=== PATIENT | male | born 1970 | race Caucasian/White ===

== ENCOUNTER 2021-11-23 10:48 | Outpatient (RCR) | payer BC, SELFPAY ==
[2021-12-09 15:24] LABS: Cancer Antigen-GI (CA 19-9) 22 U/mL (<=35)
--- NOTE | 2022-01-25 15:10 | ONC.NURNOTE ---
Narendra phoned today in follow up [facility] Sur[facility] recommended he contact oncology to start creon results pulled from [facility] to follow up with Dr Ana Rosa Mackey has an appt next month with Dr Oseguera
--- NOTE | 2022-01-27 10:50 | ONC.NURNOTE ---
Dr. Oseguera reviewed pt's Elastase Fecal value of 68.0. Script for Creon sent to pt's pharmacy. Systems Checkout Mechanic called pt with Dr. Oseguera's recommendation, pt verbalized understanding of directions for taking Creon and reason for taking. Pt has CT and follow up scheduled next month.
--- NOTE | 2022-02-18 10:55 | ONC.NURNOTE ---
Peer to peer review for abd scan completed by Olga Hubbard for CT CAP scan planned for 02/28/22 Abdominal scan approved Auth # [id number] 02/17/22-04/17/22 [facility] # [id number] Case # [id number] CT Chest and Pelvis has already been approved Abd was initially denied by [facility]
== END 2021-12-19 23:59 | disposition home or self-care (01) ==
LOC: CCIC 10:48
PROVIDERS: PCP Family Medicine; Visit Provider Internal Medicine Hematology & Oncology
DX: C25.9 Malignant neoplasm of pancreas, unspecified (principal); Z85.47 Personal history of malignant neoplasm of testis; R19.7 Diarrhea, unspecified
CPT/HCPCS: 36415; 86301; 99212; 99213; 99214

== ENCOUNTER 2021-12-06 12:42 | Outpatient (CLI) | payer BC, SELFPAY ==
[2021-12-06 13:12] LABS: Basophils Absolute Auto 0.03 K/uL (0.00-0.30); Basophils Percent Auto 0.4 % (0.0-3.0); Eosinophils Absolute Auto 0.15 K/uL (0.00-0.50); Eosinophils Percent Auto 2.2 % (0.0-7.0); Hematocrit 44.5 % (37.0-53.0); Hemoglobin* 14.8 gm/dL (13.5-17.5); Immature Granulocytes Abs Auto 0.01 K/uL (0.00-0.30); Lymphocytes Absolute Auto 1.51 K/uL (0.90-2.90); Lymphocytes Percent Auto 22.5 % (20-44); Mean Corpuscular HGB Conc 33 gm/dL (32-36); Mean Corpuscular Hemoglobin 29 pg (26-34); Mean Corpuscular Volume 86 fL (80-100); Monocytes Percent Auto 9.5 % (0.0-11.0); Neutrophils Absolute Auto 4.38 K/uL (1.7-7.0); Neutrophils Percent Auto 65.3 % (42.0-72.0); Platelet Count* 276 K/uL (140-440); RDW Coefficient of Variation % 12.6 % (11.5-15.5); Red Blood Count 5.15 m/uL (4.30-5.90); Slide Review Reflex No; White Blood Count* 6.72 K/uL (4.50-11.00)
[2021-12-06 13:33] LABS: Albumin* 4.5 g/dL (3.3-5.0); Chloride* 104 mmol/L (96-114)
[2021-12-06 13:34] LABS: Potassium* 4.3 mmol/L (3.6-5.1); Sodium* 137 mmol/L (135-149)
[2021-12-06 13:36] LABS: Bilirubin Total* 0.4 mg/dL (0.1-1.5); Creatinine* 1.1 mg/dL (0.5-1.5); Estimated Glomerular Filt Rate 81 ml/min
[2021-12-06 13:37] LABS: Alanine Aminotransferase* 88 U/L (4-50); Alkaline Phosphatase* 172 U/L (40-150); Aspartate Amino Transferase* 49 U/L (12-35); Blood Urea Nitrogen* 16 mg/dL (7-30); Calcium* 9.3 mg/dL (8.4-10.6); Carbon Dioxide* 29 mmol/L (20-32); Glucose* 93 mg/dL (60-115); Total Protein* 7.7 g/dL (6.0-8.3)
[2021-12-06 13:40] LABS: C Reactive Protein* < 0.5 mg/dL (0.5-1.0)
== END 2021-12-06 12:43 | disposition home or self-care (01) ==
PROVIDERS: PCP Family Medicine; Visit Provider Family Medicine
DX: C25.9 Malignant neoplasm of pancreas, unspecified (principal)
CPT/HCPCS: 36415; 80053; 85025; 86140

== ENCOUNTER 2022-02-28 07:23 | Outpatient (CLI) | payer BC, SELFPAY ==
--- NOTE | 2022-02-28 08:00 | CRLHL7_ITS ---
For Patients: As a result of the 21st Century Cures Act, medical imaging exams and procedure reports are released immediately into your electronic medical record. You may view this report before your referring provider. If you have questions, please contact your health care provider. Indication: MALIGNANT NEOPLASM OF PANCREAS Technique: Postcontrast CT chest, abdomen and pelvis. 89 cc Isovue 370 intravenous contrast. Please note that all CT scans at this facility use dose modulation, iterative reconstruction, and/or weight-based dosing when appropriate to reduce radiation dose to as low as reasonably achievable. Comparison: Outside CT 11/26/2021 Findings: In the chest, there is a 2 millimeter subpleural nodule 3/. Subtle ground-glass nodule left upper lobe, 42. Mild dependent atelectasis in the left lower lobe. No pleural effusion. Airways are clear. Normal visualized thyroid. No mediastinal, hilar or axillary adenopathy. No fracture. In the abdomen, postop changes of Whipple procedure are again noted. Metallic density associated with the liver is stable. The previously noted peripancreatic drain has since been removed. There is an area of low density adjacent to the surgical clips measuring 1.2 cm, 2/165. Swirling of the central mesenteric vessels noted along with subcentimeter lymph nodes. Vascular calcifications. No aneurysm. Pancreatic tail appears normal. No splenomegaly. Normal adrenal glands. No hydronephrosis. No bowel obstruction. No free air or free fluid. No abscess. Normal ureters. In the pelvis, the bladder is normal. The prostate is not enlarged. No bowel obstruction. No free air. No fracture. No pelvic or inguinal adenopathy. Stable appearance of the osseous structures with benign bone islands in the right proximal femur and right pubic bone along with a stable density in the right iliac bone. Impression: Interval removal of the peripancreatic drain since the prior study. A small low-density area is present adjacent to the postop changes, indeterminate. Similar appearance of innumerable subcentimeter central mesenteric lymph nodes. Continued short-term follow-up recommended. Subtle ground-glass nodule left upper lobe and left upper lobe subpleural pulmonary nodule. Three-month follow-up recommended. Postop changes to the liver with similar curvilinear areas of decreased density within the hepatic parenchyma, likely postop in nature. Please note that all CT scans at this facility use dose modulation, iterative reconstruction, and/or weight-based dosing when appropriate to reduce radiation dose to as low as reasonably achievable. Dictated by Viktor Ash MD @ 02/28/2022 11:50:55 AM (Electronically Signed)
== END 2022-02-28 07:24 | disposition home or self-care (01) ==
LOC: CT 07:23
PROVIDERS: PCP Family Medicine; Visit Provider Internal Medicine Hematology & Oncology
DX: C25.9 Malignant neoplasm of pancreas, unspecified (principal); R91.8 Other nonspecific abnormal finding of lung field
CPT/HCPCS: 71260; 74177; Q9967

== ENCOUNTER 2022-03-18 07:59 | Outpatient (CLI) | payer BC, SELFPAY ==
--- NOTE | 2022-03-18 08:15 | CRLHL7_ITS ---
For Patients: As a result of the Century Cures Act, medical imaging exams and procedure reports are released immediately into your electronic medical record. You may view this report before your referring provider. If you have questions, please contact your health care provider. Indication: PALPABLE AREA RIGHT OCCIPUT Technique: Grayscale and color Doppler ultrasound of the right occipital soft tissues performed. Comparison: CT-PET exam 05/13/2021 Findings: There is a normal right occipital subcutaneous lymph node measuring 1.2 x 0.3 x 1.0 cm. The cortex is not thickened and measures 1 millimeter. Normal central fatty hilum with normal vascularity. This correlates with the CT PET where a right occipital subcutaneous lymph node was present without abnormal uptake. Impression: Normal right occipital subcutaneous lymph node. No suspicion for metastatic disease. Dictated by Viktor Ash MD @ 03/18/2022 8:51:49 AM (Electronically Signed)
== END 2022-03-18 08:00 | disposition home or self-care (01) ==
PROVIDERS: PCP Family Medicine; Visit Provider Internal Medicine Hematology & Oncology
DX: C25.9 Malignant neoplasm of pancreas, unspecified (principal)
CPT/HCPCS: 76536

== ENCOUNTER 2022-03-30 13:27 | Outpatient (CLI) | payer BC, SELFPAY ==
--- NOTE | 2022-03-30 13:45 | CRLHL7_ITS ---
For Patients: As a result of the Century Cures Act, medical imaging exams and procedure reports are released immediately into your electronic medical record. You may view this report before your referring provider. If you have questions, please contact your health care provider. Indication: Pancreatic cancer, rising tumor marker Technique: MRI abdomen with and without contrast, 20 cc IV Dotarem Comparison: CT dated February 28, 2022 Findings: Normal liver size. Susceptibility artifact along the right anterior hepatic lobe. No suspicious hepatic lesions. Hepatic and portal veins patent. Status post cholecystectomy. No biliary dilatation. No significant abnormality of the adrenal glands, kidneys, or spleen. Status post pancreatic head resection with creation of a pancreaticojejunostomy. The questioned area of hypoattenuation on prior CT appears to represent a normal pancreaticojejunostomy with fluid inside the small-bowel. This is best seen (series 8, image 15, 16). There is no evidence of soft tissue or diffusion restriction near the pancreatic resection bed. There is some residual postsurgical edema in the mesentery. The aorta and IVC as well as side branches appear unremarkable. No lymphadenopathy. No significant free fluid. No suspicious osseous abnormality. Impression: 1. The questioned area near the pancreatic head on prior CT appears to represent a normal pancreaticojejunostomy. No evidence of residual or enlarging soft tissue. 2. No evidence of metastatic disease within the abdomen. No etiology identified for rising tumor markers. Dictated by Ramirez Watters MD @ 04/02/2022 11:12:29 AM (Electronically Signed)
== END 2022-03-30 13:28 | disposition home or self-care (01) ==
PROVIDERS: PCP Family Medicine; Visit Provider Internal Medicine Hematology & Oncology
DX: C25.9 Malignant neoplasm of pancreas, unspecified (principal)
CPT/HCPCS: 74183; A9575

== ENCOUNTER 2022-06-07 07:32 | Outpatient (CLI) | payer BC, SELFPAY ==
--- NOTE | 2022-06-07 08:00 | CRLHL7_ITS ---
For Patients: As a result of the Century Cures Act, medical imaging exams and procedure reports are released immediately into your electronic medical record. You may view this report before your referring provider. If you have questions, please contact your health care provider. Indication: ADENOCARCINOMA OF PANCREAS Technique: Postcontrast CT chest, abdomen and pelvis. 89 cc Isovue 370 intravenous contrast. Please note that all CT scans at this facility use dose modulation, iterative reconstruction, and/or weight-based dosing when appropriate to reduce radiation dose to as low as reasonably achievable. Comparison: 02/28/2022 CT. 03/30/2022 MRI. Findings: In the chest, no suspicious pulmonary nodule. No infiltrate or edema. No effusion or pneumothorax. Visualized thyroid is normal. No intrathoracic adenopathy. Incidental calcified mediastinal lymph node representing sequela of old granulomatous disease. No fracture is present. In the abdomen, postop changes to the liver again noted. No suspicious intrahepatic mass. No ascites. Postop changes of Whipple procedure. Stable appearance of the pancreaticojejunostomy. Stable swirling of the central mesenteric fat with subcentimeter mesenteric lymph nodes adrenal glands normal. No solid renal mass or hydronephrosis. Remaining pancreas appears normal. Spleen unremarkable. No bowel obstruction. In the pelvis, normal appearance of the appendix noted. No pelvic or inguinal adenopathy. Prostate normal. Normal bladder. Few scattered benign bone islands are present. Impression: Stable exam. No evidence of metastatic disease. Please note that all CT scans at this facility use dose modulation, iterative reconstruction, and/or weight-based dosing when appropriate to reduce radiation dose to as low as reasonably achievable. Dictated by Viktor Ash MD @ 06/07/2022 11:25:32 AM (Electronically Signed)
--- NOTE | 2022-06-07 08:00 | CRLHL7_ITS ---
For Patients: As a result of the Century Cures Act, medical imaging exams and procedure reports are released immediately into your electronic medical record. You may view this report before your referring provider. If you have questions, please contact your health care provider. INDICATION: Pancreatic adenocarcinoma. TECHNIQUE: CT of the neck soft tissues performed with IV contrast. Contrast: 89 cc Isovue 370. COMPARISON: Ultrasound of the right occipital region 06/06/2022. PET-CT 05/13/2021. FINDINGS: There is a nonenlarged lymph node noted within the right suboccipital neck soft tissue region measuring up to 2 mm in maximal short axis thickness. This corresponds with the prior ultrasound and does not demonstrate suspicious features. The nasopharynx, oropharynx and hypopharynx appear unremarkable. The supraglottic, glottic and infraglottic spaces are preserved. The parotid and submandibular glands appear unremarkable. Subcentimeter left thyroid nodule. No lymphadenopathy identified. The visualized major vascular structures appear intact. The visualized intracranial components appear grossly intact. Visualized orbits and contents appear unremarkable. Left maxillary sinus mucous retention cyst/polyp. Lung apices are clear. IMPRESSION: 1. Nonenlarged right suboccipital region lymph node corresponding to prior ultrasound examination without suspicious features. 2. No mass or lymphadenopathy. Please note that all CT scans at this facility use dose modulation, iterative reconstruction, and/or weight-based dosing when appropriate to reduce radiation dose to as low as reasonably achievable. Dictated by Jorge Easton MD @ 06/07/2022 10:54:57 AM (Electronically Signed)
== END 2022-06-07 07:33 | disposition home or self-care (01) ==
LOC: CT 07:33
PROVIDERS: PCP Family Medicine; Visit Provider Internal Medicine Hematology & Oncology
DX: C25.9 Malignant neoplasm of pancreas, unspecified (principal); R59.0 Localized enlarged lymph nodes
CPT/HCPCS: 70491; 71260; 74177; Q9967

== ENCOUNTER 2022-06-20 13:00 | Outpatient (RCR) | payer BC, SELFPAY ==
[2022-03-16 13:12] LABS: Basophils Percent Auto 0.4 % (0.0-3.0); Eosinophils Absolute Auto 0.13 K/uL (0.00-0.50); Eosinophils Percent Auto 1.7 % (0.0-7.0); Hematocrit 41.6 % (37.0-53.0); Hemoglobin* 14.1 gm/dL (13.5-17.5); Lymphocytes Percent Auto 20.7 % (20-44); Mean Corpuscular HGB Conc 34 gm/dL (32-36); Mean Corpuscular Hemoglobin 30 pg (26-34); Mean Corpuscular Volume 88 fL (80-100); Monocytes Percent Auto 8.9 % (0.0-11.0); Neutrophils Absolute Auto 5.28 K/uL (1.7-7.0); Neutrophils Percent Auto 68.3 % (42.0-72.0); Platelet Count* 273 K/uL (140-440); Red Blood Count 4.72 m/uL (4.30-5.90); White Blood Count* 7.73 K/uL (4.50-11.00)
[2022-03-16 13:13] LABS: Basophils Absolute Auto 0.03 K/uL (0.00-0.30)
[2022-03-16 13:16] LABS: Slide Review Reflex No
[2022-03-16 13:25] LABS: Albumin* 4.7 g/dL (3.3-5.0); Chloride* 103 mmol/L (96-114); Sodium* 139 mmol/L (135-149)
[2022-03-16 13:26] LABS: Potassium* 4.8 mmol/L (3.6-5.1)
[2022-03-16 13:28] LABS: Alanine Aminotransferase* 64 U/L (4-50); Alkaline Phosphatase* 151 U/L (40-150); Aspartate Amino Transferase* 47 U/L (12-35); Bilirubin Total* 0.6 mg/dL (0.1-1.5); Blood Urea Nitrogen* 17 mg/dL (7-30); Carbon Dioxide* 28 mmol/L (20-32); Creatinine* 1.1 mg/dL (0.5-1.5); Estimated Glomerular Filt Rate 81 ml/min; Glucose* 96 mg/dL (60-115); Total Protein* 7.9 g/dL (6.0-8.3)
[2022-03-16 13:29] LABS: Calcium* 8.9 mg/dL (8.4-10.6)
[2022-03-17 14:03] LABS: Cancer Antigen-GI (CA 19-9) 41 U/mL (<=35)
--- NOTE | 2022-03-25 12:27 | ONC.NURNOTE ---
Dr. contreras did peer-peer review for approval of MRI of the abdomen and was approved--Authorization # [id number] and is good through May 21 2022
--- NOTE | 2022-04-08 11:24 | ONC.NURNOTE ---
Patient given results of abdominal MRI and very relieved!
--- NOTE | 2022-04-13 09:28 | PC.NURSE ---
Pt called this morning to address the letter he received in the mail regarding changes to his oncology care. RN answered questions appropriately. Pt is scheduled to see Kayla Anthony NP in May and will resume care with Dr. Oseguera with his next visit. Pt agrees with this plan.
[2022-06-20 12:23] LABS: Basophils Absolute Auto 0.01 K/uL (0.00-0.30); Basophils Percent Auto 0.2 % (0.0-3.0); Eosinophils Absolute Auto 0.05 K/uL (0.00-0.50); Eosinophils Percent Auto 0.8 % (0.0-7.0); Hematocrit 40.4 % (37.0-53.0); Hemoglobin* 13.7 gm/dL (13.5-17.5); Lymphocytes Absolute Auto 1.71 K/uL (0.90-2.90); Lymphocytes Percent Auto 26.6 % (20-44); Mean Corpuscular HGB Conc 34 gm/dL (32-36); Mean Corpuscular Hemoglobin 30 pg (26-34); Mean Corpuscular Volume 89 fL (80-100); Monocytes Percent Auto 9.3 % (0.0-11.0); Neutrophils Absolute Auto 4.07 K/uL (1.7-7.0); Neutrophils Percent Auto 63.1 % (42.0-72.0); Platelet Count* 289 K/uL (140-440); RDW Coefficient of Variation % 13.9 % (11.5-15.5); Red Blood Count 4.56 m/uL (4.30-5.90); White Blood Count* 6.44 K/uL (4.50-11.00)
[2022-06-20 12:33] LABS: Slide Review Reflex No
[2022-06-20 12:39] LABS: Albumin* 4.5 g/dL (3.3-5.0); Chloride* 105 mmol/L (96-114)
[2022-06-20 12:40] LABS: Potassium* 4.2 mmol/L (3.6-5.1); Sodium* 140 mmol/L (135-149)
[2022-06-20 12:42] LABS: Aspartate Amino Transferase* 36 U/L (12-35); Bilirubin Total* 0.7 mg/dL (0.1-1.5); Carbon Dioxide* 29 mmol/L (20-32); Creatinine* 1.2 mg/dL (0.5-1.5); Estimated Glomerular Filt Rate 73 ml/min; Total Protein* 7.6 g/dL (6.0-8.3)
[2022-06-20 12:43] LABS: Alanine Aminotransferase* 49 U/L (4-50); Alkaline Phosphatase* 87 U/L (40-150); Blood Urea Nitrogen* 18 mg/dL (7-30); Calcium* 8.7 mg/dL (8.4-10.6); Glucose* 102 mg/dL (60-115)
[2022-06-21 14:41] LABS: Cancer Antigen-GI (CA 19-9) 26 U/mL (<=35)
== END 2022-09-12 23:59 | disposition home or self-care (01) ==
LOC: CCIC 13:00
PROVIDERS: Internal Medicine Hematology & Oncology; PCP Family Medicine; Visit Provider Nurse Practitioner Family
DX: C25.9 Malignant neoplasm of pancreas, unspecified (principal); Z85.47 Personal history of malignant neoplasm of testis
CPT/HCPCS: 36415; 80053; 85025; 86301; 99212; 99214

== ENCOUNTER 2022-09-05 07:49 | Outpatient (CLI) | payer BC, SELFPAY ==
--- NOTE | 2022-09-05 08:00 | CRLHL7_ITS ---
For Patients: As a result of the Century Cures Act, medical imaging exams and procedure reports are released immediately into your electronic medical record. You may view this report before your referring provider. If you have questions, please contact your health care provider. Indication: ADENOCARCINOMA OF PANCREAS Technique: Postcontrast CT chest, abdomen and pelvis. 90 cc Isovue 370 intravenous contrast. Oral water. Please note that all CT scans at this facility use dose modulation, iterative reconstruction, and/or weight-based dosing when appropriate to reduce radiation dose to as low as reasonably achievable. Comparison: 06/07/2022 Findings: In the chest, stable benign calcified lymph nodes in the upper mediastinum representing sequela of granulomatous disease. No suspicious lymph nodes in the mediastinum, song or axilla. There is no fracture. Incidental bone island located within the left humeral head. The lungs are clear. No infiltrate or edema. No effusion or pneumothorax. No pulmonary nodule. In the abdomen, postoperative changes to the liver are again noted. There is no suspicious intrahepatic mass. Postop changes to the pancreas again noted with chronic adjacent swirling of the mesenteric vessels. Stable subcentimeter mesenteric lymph nodes centrally. No enlarged retroperitoneal lymph nodes. The pancreatic duct is similar. Stable appearance of the bowel. Spleen is normal. Normal adrenal glands. Normal kidneys. No abdominal wall hernia. In the pelvis, there is no adenopathy. No free fluid or free air. No bowel obstruction. Bladder normal. Incidental prostate calcification. Stable appearance of the right inguinal region. There is no fracture. Impression: Stable exam. Unchanged appearance of the central mesenteric fat adjacent to the postoperative changes. Stable subcentimeter central mesenteric lymph nodes and swirling of the vessels. Also unchanged appearance of the liver. No evidence of metastatic disease. Please note that all CT scans at this facility use dose modulation, iterative reconstruction, and/or weight-based dosing when appropriate to reduce radiation dose to as low as reasonably achievable. Dictated by Viktor Ahs MD @ 09/05/2022 1:13:52 PM (Electronically Signed)
== END 2022-09-05 07:50 | disposition home or self-care (01) ==
LOC: CT 07:51
PROVIDERS: PCP Family Medicine; Visit Provider Physician Assistant
DX: C25.9 Malignant neoplasm of pancreas, unspecified (principal)
CPT/HCPCS: 71260; 74177; Q9967

== ENCOUNTER 2022-11-28 07:44 | Day surgery (SDC) | payer BC, SELFPAY ==
--- NOTE | 2022-11-15 08:59 | ONC.NURNOTE ---
Patient called and left message times 2 to call and set up chemo. Patient did mention to MD that he may consider alternative treatment. Did finally receive call back from patient and he is on-boarded with MD Swenson and hopes to get some answers from them before starting chemo. Port appointment is November [address] Beltran and patient will call to let us know about chemo.
--- NOTE | 2022-11-18 15:59 | URNOTE ---
Peer to peer: Neulasta not approved at present situation Mr. Knapp follows at our clinic for medical management of pancreatic cancer. He is s/p 12 cycles of folfirinox, s/p whipple procedure complicated by post-op infection and abscess. Last seen in our clinic by Dr. Juancarlos Oseguera on 11/10/22. Due to disease progression, Mr. Knapp is planned to commence gemcitabine, abraxane. PA was requested and approved for chemotherapy and associated antiemetics, but not for neulasta. In discussion with for [facility], regimen has low risk for febrile neutropenia. Although Mr. Knapp has also been treated for testicular cancer with surgery and radiation, this is a remote consideration. If he develops ANC of <1.5 but is showing tolerance and benefit to treatment, and the provider feels that a dose reduction or delay in therapy would be detrimental, a new request for neulasta or neupogen may be appropriate based on provider preference.
[2022-11-28] MEDS: LACTATED RINGERS 1000 ML 1,000 ML 100 ML IV (07:55)
[2022-11-28 07:58] VITALS: BMI 23.5
[2022-11-28 08:03] VITALS: BP 132/81; PULSE 76; RESP 16; TEMP 36.7; O2SAT 98
--- NOTE | 2022-11-28 08:56 | PM.GSCN ---
History of Present Illness Consult details Date Seen: 11/28/22 Consult date: 11/28/22 Narrative: 52-year-old male presents for Port-A-Cath placement. Patient was diagnosed with pancreatic cancer in 2020. He underwent adjuvant chemotherapy and subsequent exploratory laparotomy, cholecystectomy common open non pyloric preserving Whipple. Patient developed postoperative abscess and had a RAAD drain in place. His drain was subsequently removed. On patient's most recent MRI follow-up at [facility] he was noted to have recurrence of his disease. Adjuvant chemotherapy was recommended and he was referred to our service for Port-A-Cath placement. Patient had right internal jugular Port-A-Cath in place from March of 2021 to December of 2021. No other procedures on his neck. Patient denies any fevers and any open sores on his body. Review of Systems Narrative: General: no fevers HENT: no problems swallowing CV: no shortness of breath Resp: no cough PFSH PFSH Medical History (Updated 11/24/22 @ 06:36 by Tyesha Brennan RN) Low testosterone in male ?R79.89 - Other specified abnormal findings of blood chemistry (ICD-10) Hx of testicular cancer ?Z85.47 - Personal history of malignant neoplasm of testis (ICD-10) Surgical History (Updated 11/28/22 @ 09:00 by Victorina Beltran MD) History of ERCP ?Z98.890 - Other specified postprocedural states (ICD-10) History of orchiectomy, unilateral ?Z90.79 - Acquired absence of other genital organ(s) (ICD-10) History of Whipple procedure ?Z90.410 - Acquired total absence of pancreas (ICD-10) ?Z90.49 - Acquired absence of other specified parts of digestive tract (ICD-10) History of biliary duct stent placement ?Z98.890 - Other specified postprocedural states (ICD-10) History of insertion of tunneled central venous catheter (CVC) with port ?Z98.890 - Other specified postprocedural states (ICD-10) Social History Smoking Status: Former smoker Do you use any of these nicotine containing products: None How often do you have a drink containing alcohol: never How often do you have six or more drinks on one occasion: Never AUDIT-C Alcohol total score: 0 Non-prescribed substance use: marijuana (any form) Non-prescribed substance use details: edibles Caffeine: Yes Meds Home Medications and Allergies Home Medications Medication Instructions Recorded Confirmed Type omeprazole 40 mg capsule,delayed 40 mg PO QDAY 11/23/21 11/28/22 History release testosterone cypionate 100 mg/mL 100 mg IM QWEEK 12/08/21 11/28/22 History intramuscular oil (Depo-Testosterone) THC edibles 5 mg PO PRN 03/16/22 09/22/22 History acetaminophen 500 mg tablet 1,000 mg PO Q6H PRN 03/16/22 11/28/22 History (Tylenol Extra Strength) mhhaeo-cyecozxw-hozgund 1 - 3 cap PO TID 11/24/22 11/28/22 History 24,000-76,000-120,000 unit capsule,delayed rel (Creon) valacyclovir 1 gram tablet 1,000 mg PO DAILY 11/24/22 11/28/22 History (Valtrex) Allergies Allergy/AdvReac Type Severity Reaction Status Date / Time No Known Drug Allergies Allergy Verified 11/28/22 07:50 Exam Narrative: Exam Narrative: General appearance: Alert, cooperative, and in no distress Neck: There is a well-healed tiny supraclavicular surgical incision and a larger infraclavicular surgical incision from patient's previous Port-A-Cath Pulmonary: Chest symmetric, lungs clear bilaterally Cardiovascular Heart: Regular rate and rhythm, S1, S2, no murmurs/rubs/gallops Skin: Normal skin color, texture, and turgor. No rashes or lesions. Const: Vital Signs, click to edit/add: Vital Signs - 24 hr 11/28/22 08:03 Temperature 98.0 F Pulse Rate 76 Respiratory Rate 16 Blood Pressure 132/81 Pulse Oximetry 98 Oxygen Delivery Me thod Room Air Results Labs Labs: All other labs normal. Assessment and Plan Assessment and plan (1) Adenocarcinoma of pancreas: Problem comment: #Genetics -[employer] test results: 05/17/2021 -Variant of undetermined significance: BARD1 HETEROZYGOUS ? # Pancreatic cancer -no markers found: WAQAR bill= 44k [employer] : KRAS exon 2 variant MSI STABLE MMR proficient NTRK1/2/3 not detected TMB low 3 mut/mb DUKE mutation not detected BRAF mut/fusion not detected BRAC1/2 not detected NRG1/ fusion Not detected PALB2 mutation not detected SMAD4 mutation not detected ? PDL1 negative TP53 Path variant exon 5 Status: Acute Plan 52-year-old male with poorly differentiated adenocarcinoma of the pancreas s/p Whipple now with recurrent disease presents for Port-A-Cath placement. I discussed with the patient and his friend the procedure. I discussed the risks associated the procedure including infection, bleeding, and pneumothorax. Patient agreed to proceed.
--- NOTE | 2022-11-28 09:12 | CRLHL7_ITS ---
For Patients: As a result of the Century Cures Act, medical imaging exams and procedure reports are released immediately into your electronic medical record. You may view this report before your referring provider. If you have questions, please contact your health care provider. Indication: Portacath placement Technique: Two fluoroscopic images of the chest. Fluoroscopic time 51.1 seconds. IMPRESSION: Fluoroscopic guidance for right Port-A-Cath placement. Dictated by Viktor Ash MD @ 11/28/2022 10:08:30 AM (Electronically Signed)
--- NOTE | 2022-11-28 09:14 | P.GSOP_ITS ---
Operative Note Date of procedure: 11/28/22 Pre-op diagnosis: 1. Recurrent adenocarcinoma of the pancreas s/p neoadjuvant chemotherapy and surgery. 2. s/p right internal jugular Port-A-Cath placement and removal. Post-op diagnosis: Same Type of Procedure: 1. Right internal jugular Port-A-Cath placement with ultrasound and fluoroscopy guidance. Indications: 52-year-old male with history of pancreatic adenocarcinoma s/p neoadjuvant chemotherapy and Whipple procedure developed recurrence of pancreatic adenocarcinoma. Patient has a history of right internal jugular Port-A-Cath placement and removal 1 year ago. Patient was seen by Oncology and adjuvant chemotherapy was recommended. He then was referred to our surgery center for a Port-A-Cath placement. Patient denied any open sores or infections. Given his clinical history, Port-A-Cath placement was recommended. The procedure was discussed in detail. The risks associated procedure including infection, bleeding, and pneumothorax were all discussed with the patient, and he agreed to proceed. Procedure Description: After discussing the risks and benefits of the procedure, the patient signed informed consent.? The operative site was marked and the patient was brought to the operating room and placed on the operating table in supine position.? Care was taken to pad the patient's pressure points.?? The patient was then sedated by anesthesia.?? The operative site was then prepped and draped in the usual sterile fashion.? A time-out was then performed. Ultrasound was brought on to the field and right internal jugular vein was assessed. This was found to be large and easily compressible. The base of the neck directly overlying the internal jugular vein was then anesthetized with 1% lidocaine and 0.25% Marcaine mixture, and an introducer needle was inserted into the internal jugular vein using ultrasound guidance. Entry into the vein was confirmed by the presence of dark, nonpulsatile blood. A guide wire was advanced through the needle. The introducer needle was removed, leaving the wire in place. Fluoroscopy was brought onto the field and used to confirm the passage of the wire through the superior vena cava and into the inferior vena cava. Lidocaine was then used to infiltrate the port skin site, along with the proposed tunneling tract. A 3 cm incision was made at the site of the port pocket through a previously well-healed surgical incision and subcutaneous tissue was dissected down using electrocautery. Subcutaneous pocket was created with blunt dissection and electrocautery. The catheter was advanced through the subcutaneous tissue using a tunneling trocar, exiting the incision at the base of the neck. The trocar was then disconnected. Fluoroscopy was again brought on to the field and the internal jugular vein and adjacent subcutaneous tissue was dilated with a pre-split introducer sheath in place. The wire was removed and the catheter was inserted into the introducer sheath. As the catheter was advanced, the sheath was split and divided, removing the sheath as the catheter was advanced into place. Fl uoroscopy was again brought on to the field and the catheter position was examined. The entire course of the catheter was then viewed, and catheter was pulled back under direct visualization to ensure that the tip is in the SVC. The port was connected to the catheter tip and placed into previously created pocket. Prolene was used to place anchoring port sutures and the port was then secured in the pocket. The flow through the catheter was checked with a syringe, and found to be excellent. The incision at the base of the neck was then closed with a single interrupted 4-0 monocryl stitch and dressed with a Steri-Strip and a sterile bandage. Subdermal layer was re-approximated with interrupted 3-0 vicryl stitches and skin over the port was closed with 4-0 monocryl using subcuticular stitch. Gonzalez needle was inserted through the skin into the port and the port was flushed with heparinized saline. The port was left accessed. Steri strips, sterile 2x2 and Tegaderm was applied over the incision. The patient was then roused and brought to same day surgery in satisfactory condition. Sponge and needle counts were correct at the end of the procedure. Post procedure CXR was ordered to be done in same day surgery. Findings: Easily compressible right internal jugular vein. Anesthesia: MAC and local Surgeon: Victorina Beltran MD Estimated blood loss (mL): 5 Condition: stable Disposition: same day
[2022-11-28] MEDS: CEFAZOLIN 1 GM inj IVP (09:22)
--- NOTE | 2022-11-28 09:24 | W.ANESCHARGE ---
Anesthesia Charges Start Date/Time Anesthesia Start Date: 11/28/22 Anesthesia Start Time: 09:13 Stop Date/Time Anesthesia Stop Date: 11/28/22 Anesthesia Stop Time: 10:05
[2022-11-28] MEDS: HEPARIN 500 UNIT/5 ML SYRINGE IVF (09:50)
[2022-11-28] MEDS: BUPIVACAINE 0.25% 30 ML INJECTION (09:50)
[2022-11-28] MEDS: 0.9% SODIUM CHL 50 ML VIAL INJECTION (09:50)
[2022-11-28 10:05] VITALS: BP 98/51; PULSE 76; RESP 16; TEMP 36.7; O2SAT 98
--- NOTE | 2022-11-28 10:14 | W.ANESCHARGE ---
Anesthesia Charges Start Date/Time Anesthesia Start Date: 11/28/22 Anesthesia Start Time: 09:13 Stop Date/Time Anesthesia Stop Date: 11/28/22 Anesthesia Stop Time: 10:05
[2022-11-28 10:20] VITALS: BP 110/87; PULSE 74; RESP 18; O2SAT 98
--- NOTE | 2022-11-28 10:21 | CRLHL7_ITS ---
For Patients: As a result of the Century Cures Act, medical imaging exams and procedure reports are released immediately into your electronic medical record. You may view this report before your referring provider. If you have questions, please contact your health care provider. Indication: Postop Port-A-Cath Comparison: None available. Technique: Single AP view chest Findings: There is satisfactory position of right-sided Port-A-Cath with tip in the mid superior vena cava. There is no focal consolidation, effusion, or pneumothorax. The cardiomediastinal silhouette is within normal limits. The bony thorax is grossly intact. Impression: Satisfactory position of right-sided Port-A-Cath. Dictated by Sergey Bragg MD @ 11/28/2022 10:37:36 AM (Electronically Signed)
[2022-11-28 10:35] VITALS: BP 117/74; PULSE 70; RESP 18; O2SAT 98
[2022-11-28 10:50] VITALS: BP 114/77; PULSE 78; RESP 16; O2SAT 99
== END 2022-11-28 11:00 | disposition home or self-care (01) ==
PROVIDERS: Surgery; PCP Family Medicine; Visit Provider Surgery
DX: Z45.2 Encounter for adjustment and management of vascular access device (principal); C25.9 Malignant neoplasm of pancreas, unspecified
CPT/HCPCS: 36561; 00532; 71045; 76000; C1788; J0665; J0690; J1642; J2250; J2704; J3010; J7120

== ENCOUNTER 2022-12-01 08:58 | Emergency (ER) | payer BC, SELFPAY ==
[2022-12-01] VITALS (10 sets, daily range): BP systolic 110–124; BP diastolic 70–80; PULSE 82–98; RESP 16–20; TEMP 37.9–38.4; O2SAT 96–99; BMI 22.8
--- NOTE | 2022-12-01 09:19 | CRLHL7_ITS ---
For Patients: As a result of the Cures Act, medical imaging exams and procedure reports are released immediately into your electronic medical record. You may view this report before your referring provider. If you have questions, please contact your health care provider. INDICATION: FEVER TECHNIQUE: Chest 1 view COMPARISON: 11/28/2022 FINDINGS: Lungs clear. Stable position of the Port-A-Cath. Unchanged mediastinum. IMPRESSION: No acute findings. Dictated by Viktor Ahs MD @ 12/01/2022 10:15:05 AM (Electronically Signed)
--- NOTE | 2022-12-01 09:30 | ED_ITS ---
HPI - Fever General Chief Complaint: Fever Stated Complaint: infusion patient, has a temp over 100 Time Seen by Provider: 12/01/22 09:04 History of Present Illness HPI Narrative: Patient is a 52-year-old gentleman with known metastatic pancreatic cancer following Whipple procedure. He had a Port-A-Cath placed 3 days ago and now presents with fever of 101. He felt well until yesterday and received his chemotherapy of gemcitabine and Abraxane. Patient has no redness at the Port-A-Cath site. He has had no nausea no vomiting no fevers no chills. He has had no cough. Localizing symptoms. Patient has not taken any Tylenol or ibuprofen. Patient had a slight white blood cell count when he started chemotherapy earlier this week. No other significant symptoms have been noted. Related Data Home Medications Medication Instructions Recorded Confirmed omeprazole 40 mg capsule,delayed 40 mg PO QDAY 11/23/21 12/01/22 release testosterone cypionate 100 mg/mL 100 mg IM QWEEK 12/08/21 12/01/22 intramuscular oil (Depo-Testosterone) THC edibles 5 mg PO 1XD PRN 03/16/22 12/01/22 acetaminophen 500 mg tablet 1,000 mg PO Q6H PRN 03/16/22 12/01/22 (Tylenol Extra Strength) valacyclovir 1 gram tablet 1,000 mg PO DAILY 11/24/22 12/01/22 (Valtrex) Previous Rx's Medication Instructions Recorded [id number] 1 - 4 cap PO QDAY #120 caps 11/29/22 24,000-76,000-120,000 unit capsule,delayed rel (Creon) lorazepam 0.5 mg tablet 0.5 mg PO BID PRN Breakthrough, 11/29/22 anticipatory nausea, #30 tabs ondansetron 4 mg disintegrating 4 mg PO Q6H PRN nausea and 11/29/22 tablet vomiting #40 tabs prochlorperazine maleate 10 mg 10 mg PO TID PRN chemotherapy 11/29/22 tablet (Compazine) related nausea #45 tabs amoxicillin 875 mg-potassium 1 tab PO Q12H #14 tabs 12/01/22 clavulanate 125 mg tablet Allergies Allergy/AdvReac Type Severity Reaction Status Date / Time No Known Drug Allergies Allergy Verified 12/01/22 09:03 Review of Systems Status of ROS Reports: 10 or more systems reviewed and unremarkable except as noted in History and below [facility] Medical History Encounter for insertion of tunneled central venous catheter (CVC) with port ?Z45.2 - Encounter for adjustment and management of vascular access device (ICD-10) CINV (chemotherapy-induced nausea and vomiting) ?R11.2 - Nausea with vomiting, unspecified (ICD-10) ?T45.1X5A - Adverse effect of antineoplastic and immunosuppressive drugs, initial encounter (ICD-10) Low testosterone in male ?R79.89 - Other specified abnormal findings of blood chemistry (ICD-10) Hx of testicular cancer ?Z85.47 - Personal history of malignant neoplasm of testis (ICD-10) Surgical History History of ERCP ?Z98.890 - Other specified postprocedural states (ICD-10) History of orchiectomy, unilateral ?Z90.79 - Acquired absence of other genital organ(s) (ICD-10) History of Whipple procedure ?Z90.410 - Acquired total absence of pancreas (ICD-10) ?Z90.49 - Acquired absence of other specified parts of digestive tract (ICD- 10) History of biliary duct stent placement ?Z98.890 - Other specified postprocedural states (ICD-10) History of insertion of tunneled central venous catheter (CVC) with port ?Z98.890 - Other specified postprocedural states (ICD-10) Social History Smoking Status: Former smoker What tobacco products do you use: cigarettes Smoking quit date/years: <= 15 years ago Do you use any of these nicotine containing products: None Second hand tobacco smoke exposure: No How often do you have a drink containing alcohol: never How often do you have six or more drinks on one occasion: Never AUDIT-C Alcohol total score: 0 Non-prescribed substance use: marijuana (any form) Non-prescribed substance use details: edibles Caffeine: Yes service: No Exam Narrative Exam Narrative: EXAM GENERAL: Patient appears comfortable and well. EYES: No scleral icterus. THYROID: no thyroid nodules or thyromegaly. LYMPH: No supraclavicular or cervical lymphadenopathy. SKIN: Visible skin seen during exam normal or with benign process only. EXT: No dependent lower extremity pedal edema. HEART: Regular rate and rhythm with no murmurs, rubs, or gallops. LUNGS: Clear to auscultation bilaterally with no crackles or wheezes. ABD: Soft, non tender, non distended. PSYCH: Good eye contact, speech is not pressured. Examination the Port-A-Cath site appears to show clean dry non erythematous placement. Const Vital Signs, click to edit/add: Vital Signs - 24 hr 12/01/22 09:04 12/01/22 10:03 12/01/22 10:04 Temperature 101.1 F H Pulse Rate 88 88 Pulse Rate [Pulse Oximeter] 98 Respiratory Rate 20 Blood Pressure 122/77 Blood Pressure [Right Upper Arm] 122/80 Pulse Oximetry 97 98 98 Oxygen Delivery Method Room Air Course Course Hospital Course: Patient seen examined. IV fluids begun. Patient given 1 g of oral Tylenol. I did give him 4 mg of Zofran and collected COVID testing blood cultures x2 CRP sed rate CBC comprehensive metabolic panel portable chest x-ray UA. Consultations Consultation #1: Spoke with Dr. Oseguera Oncology and reviewed workup. She recommends home with Augmentin. Vital Signs Vital signs: Initial Vital Signs Temperature 101.1 F H 12/01/22 09:04 Temperature Source Oral 12/01/22 09:04 Pulse Rate 98 12/01/22 09:04 Pulse Rhythm Regular 12/01/22 09:04 Pulse Strength 3+ Normal 12/01/22 09:04 Respiratory Rate 20 12/01/22 09:04 Blood Pressure 122/80 12/01/22 09:04 Blood Pressure Mean 94 12/01/22 09:04 Blood Pressure Position Supine 12/01/22 09:04 Pulse Oximetry 97 12/01/22 09:04 Oxygen Delivery Method Room Air 12/01/22 09:04 Vital Signs Temperature 101.1 F H 12/01/22 09:04 Pulse Rate 98 12/01/22 09:04 Respiratory Rate 20 12/01/22 09:04 Blood Pressure 122/80 12/01/22 09:04 Pulse Oximetry 97 12/01/22 09:04 Oxygen Delivery Method Room Air 12/01/22 09:04 Temperature 101.1 F H 12/01/22 09:04 Pulse Rate 88 12/01/22 10:04 Respiratory Rate 20 12/01/22 09:04 Blood Pressure 122/77 12/01/22 10:03 Pulse Oximetry 98 12/01/22 10:04 Oxygen Delivery Method Room Air 12/01/22 09:04 MDM - Fever MDM Narrative Medical decision making narrative: Patient is a 52-year-old gentleman with a known metastatic prostate cancer presents with fever. He did have leukocytosis at the initiation of his recent chemotherapy. He also had recent placement of a Port-A-Cath. No signs of infection were found on extensive workup including chest x-ray UA laboratory studies will examination. I did give him 1000 mg of Tylenol 1 L of normal saline 4 mg of Zofran with improvement of his symptoms. Blood cultures were collected COVID testing is negative. At this time I did review the case with Oncology they do recommend that since he has a recent port extending him with Augmentin for week 875 p.o. b.i.d. is reasonable. Patient will continue his outpatient treatment plan otherwise it will report any change in his symptoms. Differential Diagnosis Differential diagnosis: Likely cellulitis, fever of unknown origin, community acquired pneumonia, pyelonephritis, viral infection and influenza Lab Data Labs: Lab Results 12/01/22 12/01/22 Range/Units 09:19 09:35 WBC 14.33 H (4.50-11.00) K/uL RBC 4.11 L (4.30-5.90) m/uL Hgb 12.3 L (13.5-17.5) gm/dL Hct 36.6 L (37.0-53.0) % MCV 89 (80-100) fL MCH 30 (26-34) pg MCHC 34 (32-36) gm/dL RDW Coeff of Jus 12.4 (11.5-15.5) % Plt Count 311 (140-440) K/uL Neut % (Auto) 91.1 H (42.0-72.0) % Lymph % (Auto) 6.0 L (20-44) % [place] % (Auto) 2.4 (0.0-11.0) % Eos % (Auto) 0.1 (0.0-7.0) % Baso % (Auto) 0.1 (0.0-3.0) % Neut # (Auto) 13.10 H (1.7-7.0) K/uL Lymph # (Auto) 0.90 (0.90-2.90) K/uL [place] # (Auto) 0.30 (0.00-0.90) K/UL Eos # (Auto) 0.00 (0.00-0.50) K/uL Baso # (Auto) 0.00 (0.00-0.30) K/uL Abs Immat Gran (auto) 0.00 (0.00-0.30) K/uL Imm/Tot Granulo (auto) 0.3 % Sodium 132 L (135-149) mmol/L Potassium 4.2 (3.6-5.1) mmol/L Chloride 97 (96-114) mmol/L Carbon Dioxide 27 (20-32) mmol/L BUN 18 (7-30) mg/dL Creatinine 0.9 (0.5-1.5) mg/dL Estimated Creat Clear 103.49 Estimated GFR 103 ml/min Glucose 99 (60-115) mg/dL Calcium 8.3 L (8.4-10.6) mg/dL Total Bilirubin 0.8 (0.1-1.5) mg/dL AST 58 H (12-35) U/L ALT 59 H (4-50) U/L Alkaline Phosphatase 135 (40-150) U/L C-Reactive Protein 7.1 H (0.5-1.0) mg/dL Total Protein 7.2 (6.0-8.3) g/dL Albumin 3.8 (3.3-5.0) g/dL Urine Color Yellow (Yellow) Urine Appearance Clear (Clear) Urine pH 8.5 (5.0-8.5) Ur Specific [place] 1.020 (1.000-1.030) Urine Protein Trace A (Negative) Urine Glucose (UA) Negative (Negative) Urine Ketones Negative (Negative) Urine Blood Negative (Negative) Urine Nitrite Negative (Negative) Urine Bilirubin Negative (Negative) Urine Urobilinogen 0.2 (0.2-1.0) Ur Leukocyte Esterase Negative (Negative) Urine RBC 0-2 (0-2) Urine WBC 0-2 (0-5) Ur Squamous Epith Cells Moderate A (None-Few) Urine Bacteria None (None) SARS-CoV-2 (PCR) Negative SARS-CoV-2 (Negative) Influenza Type A (PCR) Negative PCR FLU A (Negative) Influenza Type B (PCR) Negative PCR FLU B (Negative) RSV (PCR) Negative PCR RSV (Negative) Discharge Plan Discharge Clinical Impression: Fever Patient Disposition: Home, Self-Care Condition: Stable Instructions: Fever in Adults (ED) Additional Instructions: Augmentin 875 p.o. b.i.d. for 7 days Tylenol 1000 mg 4 times a day as needed Motrin 600 mg 4 times a day as needed Rest Fluids Outpatient follow-up as directed Activity Level: No Restrictions Discharge Diet: Regular Prescriptions: New amoxicillin-pot clavulanate 875-125 mg tablet 1 tab PO Q12H Qty: 14 0RF No Action omeprazole 40 mg capsule,delayed release(DR/EC) 40 mg PO QDAY acetaminophen [Tylenol Extra Strength] 500 mg tablet 1,000 mg PO Q6H PRN THC edibles 5 mg PO 1XD PRN testosterone cypionate [Depo-Testosterone] 100 mg/mL oil 100 mg IM QWEEK ondansetron 4 mg tablet,disintegrating 4 mg PO Q6H PRN (Reason: nausea and vomiting) Qty: 40 1RF Rx Instructions: Take #2 for nausea related to chemotherapy, if not relieved with prochlorperazine (compazine) prochlorperazine maleate [Compazine] 10 mg tablet 10 mg PO TID PRN (Reason: chemotherapy related nausea) Qty: 45 2RF Rx Instructions: Take #1 for nausea related to chemotherapy. lorazepam 0.5 mg tablet 0.5 mg PO BID PRN (Reason: Breakthrough, anticipatory nausea,) Qty: 30 0RF Rx Instructions: Take if compazine or zofran ineffective for nausea and vomiting management. Do not take with other sedating medications. Creon 24,000-76,000 -120,000 unit capsule,delayed release(DR/EC) 1 - 4 cap PO QDAY Qty: 120 1RF Rx Instructions: administer with meals and/or snacks. Max of 4 capsules per day. valacyclovir [Valtrex] 1 gram tablet 1,000 mg PO DAILY Follow Up/Referrals: Tico Hugo MD [Primary Care Provider] - Stand Alone Forms: [facility] Info Instructions
[2022-12-01] MEDS: ACETAMINOPHEN 500 MG TABLET 1000 MG PO (09:59)
[2022-12-01] MEDS: 0.9 % SODIUM CHLORIDE 1000 ml 1,000 ML IV (09:59)
[2022-12-01] MEDS: ONDANSETRON 2 MG/ML inj 4 MG IVP (09:59)
[2022-12-01 10:03] LABS: Basophils Percent Auto 0.1 % (0.0-3.0); Eosinophils Percent Auto 0.1 % (0.0-7.0); Hematocrit 36.6 % (37.0-53.0); Hemoglobin* 12.3 gm/dL (13.5-17.5); Immature Granulocytes Pct Auto 0.3 %; Mean Corpuscular HGB Conc 34 gm/dL (32-36); Mean Corpuscular Hemoglobin 30 pg (26-34); Mean Corpuscular Volume 89 fL (80-100); Monocytes Percent Auto 2.4 % (0.0-11.0); Neutrophils Percent Auto 91.1 % (42.0-72.0); Platelet Count* 311 K/uL (140-440); RDW Coefficient of Variation % 12.4 % (11.5-15.5); Red Blood Count 4.11 m/uL (4.30-5.90); White Blood Count* 14.33 K/uL (4.50-11.00)
[2022-12-01 10:04] LABS: Appearance Urine Clear (Clear); Bilirubin Urine Negative (Negative); Blood Urine Negative (Negative); Color Urine Yellow (Yellow); Glucose Urine Negative (Negative); Ketones Urine Negative (Negative); Leukocyte Esterase Urine Negative (Negative); Nitrite Urine Negative (Negative); Protein Urine Trace (Negative); Urobilinogen Urine 0.2 (0.2-1.0); pH Urine 8.5 (5.0-8.5)
[2022-12-01 10:12] LABS: Slide Review Reflex No
[2022-12-01 10:14] LABS: RBC Urine 0-2 (0-2); Squamous Epithelial Cell Urine Moderate (None-Few); WBC Urine 0-2 (0-5)
[2022-12-01 10:20] LABS: Albumin* 3.8 g/dL (3.3-5.0); Chloride* 97 mmol/L (96-114); Sodium* 132 mmol/L (135-149)
[2022-12-01 10:21] LABS: Potassium* 4.2 mmol/L (3.6-5.1)
[2022-12-01 10:23] LABS: Alkaline Phosphatase* 135 U/L (40-150); Aspartate Amino Transferase* 58 U/L (12-35); Bilirubin Total* 0.8 mg/dL (0.1-1.5); Carbon Dioxide* 27 mmol/L (20-32); Creatinine* 0.9 mg/dL (0.5-1.5); Est. Creatinine Clearance* 103.49; Estimated Glomerular Filt Rate 103 ml/min; Total Protein* 7.2 g/dL (6.0-8.3)
[2022-12-01 10:24] LABS: Alanine Aminotransferase* 59 U/L (4-50); Blood Urea Nitrogen* 18 mg/dL (7-30); Calcium* 8.3 mg/dL (8.4-10.6); Glucose* 99 mg/dL (60-115)
[2022-12-01 10:26] LABS: C Reactive Protein* 7.1 mg/dL (0.5-1.0)
[2022-12-01 10:40] LABS: PCR FLU A Negative PCR FLU A (Negative); PCR FLU B Negative PCR FLU B (Negative); PCR RSV Negative PCR RSV (Negative)
[2022-12-01 10:42] LABS: SARS PCR* Negative SARS-CoV-2 (Negative)
[2022-12-01 11:04] LABS: Erythrocyte SedimentationRate* 34 mm/hr (2-15)
== END 2022-12-01 11:17 | disposition home or self-care (01) ==
PROVIDERS: Emergency Provider Internal Medicine; PCP Family Medicine
DX: R50.9 Fever, unspecified (principal)
CPT/HCPCS: 36415; 71045; 80053; 81003; 81015; 85025; 85651; 86140; 87040; 87631; 96374; 99283; 99284; A9270; J2405; J7030

== ENCOUNTER 2022-12-30 08:37 | Outpatient (CLI) | payer BC, SELFPAY ==
--- NOTE | 2022-12-30 09:00 | CRLHL7_ITS ---
For Patients: As a result of the 21st Century Cures Act, medical imaging exams and procedure reports are released immediately into your electronic medical record. You may view this report before your referring provider. If you have questions, please contact your health care provider. Indication: pancreatic cancer f/u and h/o testicular cancer Technique: CT CAP with 81 cc Isovue [address] scans at this facility use dose modulation, iterative reconstruction, and/or weight-based dosing when appropriate to reduce radiation dose to as low as reasonably achievable. Comparison: 09.05.22, 06.07.22 Findings: In the chest, the lungs are clear. No infiltrate, edema, effusion or nodule. No mediastinal, hilar, or axillary adenopathy. Normal osseous structures. In the abdomen/pelvis, there is a large heterogeneous solid left hepatic lobe mass measuring 7.6 x 8.5 cm. A small right hepatic lobe mass is also present measuring 1.3 cm. The spleen is normal. Normal adrenal glands. Kidneys are normal. Area of decreased density within the pancreatic head measures 1.1 x 2.4 cm, likely unchanged. Increased size of a lymph node posterior to the superior mesenteric artery measuring 2.1 cm. Swelling of the central mesenteric vessels are similar. Atherosclerotic changes. Postop changes to the distal stomach with intact anastomosis. Increased stool in the colon. Mild heterogeneity of the prostate. Trace right pelvic free fluid. Appendix normal. Normal bladder. Undescended right testicle. No fracture. Impression: New large intrahepatic mass arising from the left hepatic lobe measuring 7.6 x 8.5 cm. Additional new lesion within the right hepatic lobe measuring 1.3 cm. Increased size of retroperitoneal lymph node measuring 2.1 cm. Similar appearance of the pancreatic head. Increased stool within the colon suggesting constipation. No mechanical bowel obstruction. Please note that all CT scans at this facility use dose modulation, iterative reconstruction, and/or weight-based dosing when appropriate to reduce radiation dose to as low as reasonably achievable. Dictated by Viktor Ash MD @ 12/30/2022 1:16:12 PM (Electronically Signed)
== END 2022-12-30 08:38 | disposition home or self-care (01) ==
LOC: CT 08:38
PROVIDERS: PCP Family Medicine; Visit Provider Internal Medicine Hematology & Oncology
DX: C25.9 Malignant neoplasm of pancreas, unspecified (principal); R16.0 Hepatomegaly, not elsewhere classified; R59.9 Enlarged lymph nodes, unspecified; K59.00 Constipation, unspecified
CPT/HCPCS: 71260; 74177; Q9967

== ENCOUNTER 2023-02-28 09:39 | Outpatient (CLI) | payer BC, SELFPAY ==
--- NOTE | 2023-02-28 10:00 | CRLHL7_ITS ---
For Patients: As a result of the 21st Century Cures Act, medical imaging exams and procedure reports are released immediately into your electronic medical record. You may view this report before your referring provider. If you have questions, please contact your health care provider. Indication: PANCREATIC CANCER FOLLOW UP Technique: Postcontrast CT chest, abdomen and pelvis. 77 cc Isovue 370 intravenous contrast. Please note that all CT scans at this facility use dose modulation, iterative reconstruction, and/or weight-based dosing when appropriate to reduce radiation dose to as low as reasonably achievable. Comparison: 12/30/2022, 09/05/2022 Findings: In the chest, no mediastinal, hilar or axillary adenopathy. No thyroid mass. No pericardial or pleural effusion. No fracture or intrinsic osseous lesion. Lungs are clear. No infiltrate or edema. No effusion or pneumothorax. No pulmonary nodule. In the abdomen, large mass within the left hepatic lobe has increased in size measuring 11.2 x 8.2 cm, previously measuring 8.5 x 7.6 cm. Stable low-density lesion within the dome of the liver adjacent to the hemidiaphragm. Postprocedural changes to the periphery of the liver again noted. New hypodense lesion within the left hepatic lobe adjacent to the falciform ligament measuring 2.4 cm. Gallbladder absent. No biliary obstruction. Normal right adrenal gland and right kidney. Left kidney and left adrenal gland are similar. Spleen is normal. Cystic mass like lesion is similar measuring 2.3 x 1.1 cm in the location of the pancreas. Similar appearance of the pancreatic duct. Retroperitoneal adenopathy is similar including a lymph node located posterior to the superior mesenteric artery measuring 2 cm. No hiatal hernia. Postop changes to the stomach. Stable subcentimeter mesenteric lymph nodes. In the pelvis, the bladder is normal. Prostate is upper limits of normal with mild heterogeneity and incidental calcification. No bowel obstruction or free air. No abscess. Intact gastrojejunostomy anastomosis. Similar appearance of the right inguinal canal with possible incomplete distension of the right testicle. Trace pelvic free fluid. No fracture is present. Incidental bone islands within the right hemipelvis. Impression: Increased size of the large intrahepatic metastatic lesion now measuring up to 11.2 cm. New intrahepatic metastatic lesion measuring 2.4 cm within the left hepatic lobe. Similar appearance of the upper retroperitoneum with stable adenopathy and cystic structures within the region of the pancreatic head. No suspicious pulmonary nodule. No pelvic adenopathy. Please note that all CT scans at this facility use dose modulation, iterative reconstruction, and/or weight-based dosing when appropriate to reduce radiation dose to as low as reasonably achievable. Dictated by Viktor Ash MD @ 03/01/2023 9:18:27 AM (Electronically Signed)
== END 2023-02-28 09:40 | disposition home or self-care (01) ==
PROVIDERS: PCP Family Medicine; Visit Provider Internal Medicine Hematology & Oncology
DX: C25.9 Malignant neoplasm of pancreas, unspecified (principal); C78.7 Secondary malignant neoplasm of liver and intrahepatic bile duct
CPT/HCPCS: 71260; 74177; Q9967

== ENCOUNTER 2023-03-14 14:05 | Emergency (ER) | payer BC, SELFPAY ==
[2023-03-14] VITALS (13 sets, daily range): BP systolic 96–109; BP diastolic 67–70; PULSE 77–98; RESP 16–18; TEMP 37.3; O2SAT 95–100; BMI 20.7
--- NOTE | 2023-03-14 17:35 | CRLHL7_ITS ---
For Patients: As a result of the Cures Act, medical imaging exams and procedure reports are released immediately into your electronic medical record. You may view this report before your referring provider. If you have questions, please contact your health care provider. INDICATION: Fever. TECHNIQUE: Chest 2 views. COMPARISON: 02/28/2023. FINDINGS: Cardiovascular and mediastinum: Heart size and vasculature are normal in caliber and appearance. Right-sided port catheter tip terminates in the lower SVC. Lungs and pleural spaces: Lungs are clear. No sign of infiltrate or mass. No sign of pleural effusion. No pneumothorax. Bones and soft tissues: No significant findings. IMPRESSION: No acute cardiopulmonary abnormality. Dictated by Riki Pride MD @ 03/14/2023 7:05:57 PM (Electronically Signed)
--- NOTE | 2023-03-14 17:37 | ED_ITS ---
HPI - Fever General Date Seen: 03/14/23 <Felipe Blackmon MD - Last Filed: 03/16/23 12:53> Chief Complaint: Fever <Felipe Blackmon MD - Last Filed: 03/16/23 12:53> Stated Complaint: Cancer patient--fever <Felipe Blackmon MD - Last Filed: 03/16/23 12:53> Time Seen by Provider: 03/14/23 17:34 <Felipe Blackmon MD - Last Filed: 03/16/23 12:53> Source: patient and family <Felipe Blackmon MD - Last Filed: 03/16/23 12:53> Mode of arrival: ambulatory <Felipe Blackmon MD - Last Filed: 03/16/23 12:53> Limitations: no limitations <Felipe Blackmon MD - Last Filed: 03/16/23 12:53> History of Present Illness HPI Narrative: Patient is a very nice 52-year-old gentleman who has 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 Does not have any really other symptomology with this in taking Tylenol for the fevers. Denies any nausea vomiting, headaches neck pain or stiffness no sore throat. He has had no significant cough shortness of breath, dysuria frequency he does have a rash she notes on his stomach, but he thinks is from possible to chemo. He also has some left-sided flank discomfort, which she says is also probably from sitting around and does not think this is related. If he remembers corecctally tells me that his white count was 18 pre chemo last time Unfortunately his tumor is not responding to his chemo, he tells me he has only got a couple months left to live. <Felipe Blackmon MD - Last Filed: 03/16/23 12:53> MD elicited complaint: fever <Felipe Blackmon MD - Last Filed: 03/16/23 12:53> Associated symptoms: denies other symptoms <Felipe Blackmon MD - Last Filed: 03/16/23 12:53> Related Data Home Medications: Home Medications Medication Instructions Recorded Confirmed omeprazole 40 mg capsule,delayed 40 mg PO QDAY 11/23/21 03/15/23 release testosterone cypionate 100 mg/mL 100 mg IM QWEEK 12/08/21 03/15/23 intramuscular oil (Depo-Testosterone) THC edibles 5 mg PO 1XD PRN 03/16/22 03/15/23 acetaminophen 500 mg tablet 1,000 mg PO Q6H PRN 03/16/22 03/15/23 (Tylenol Extra Strength) valacyclovir 1 gram tablet 1,000 mg PO DAILY PRN 11/24/22 03/15/23 (Valtrex) loratadine 10 mg tablet (Claritin) 10 mg PO DAILY 01/10/23 03/15/23 Previous Rx's Medication Instructions Recorded lorazepam 0.5 mg tablet 0.5 mg PO BID PRN Breakthrough, 11/29/22 anticipatory nausea, #30 tabs ondansetron 4 mg disintegrating 4 mg PO Q6H PRN nausea and 11/29/22 tablet vomiting #40 tabs prochlorperazine maleate 10 mg 10 mg PO TID PRN chemotherapy 11/29/22 tablet (Compazine) related nausea #45 tabs bgnlml-pcpjhqaa-lgecoar 1 - 4 cap PO QDAY #120 caps 02/21/23 24,000-76,000-120,000 unit capsule,delayed rel (Creon) oxycodone 10 mg tablet 10 mg PO Q6H PRN pain #10 tabs 03/14/23 oxycodone 5 mg tablet 5 mg PO Q6H PRN pain #10 tabs 03/14/23 sodium chloride 1,000 mg soluble 1,000 mg PO QDAY PRN electrolyte 03/15/23 tablet replenishment #10 tabs <Felipe Blackmon MD - Last Filed: 03/16/23 12:53> Allergies/Adverse Reactions: Allergies Allergy/AdvReac Type Severity Reaction Status Date / Time No Known Drug Allergies Allergy Verified 03/15/23 10:10 <Felipe Blackmon MD - Last Filed: 03/16/23 12:53> Review of Systems Status of ROS Reports: 10 or more systems reviewed and unremarkable except as noted in History and below <Felipe Blackmon MD - Last Filed: 03/16/23 12:53> PFSH PFSH Medical History: Medical History Encounter for insertion of tunneled central venous catheter (CVC) with port ?Z45.2 - Encounter for adjustment and management of vascular access device (ICD-10) CINV (chemotherapy-induced nausea and vomiting) ?R11.2 - Nausea with vomiting, unspecified (ICD-10) ?T45.1X5A - Adverse effect of antineoplastic and immunosuppressive drugs, initial encounter (ICD-10) Low testosterone in male ?R79.89 - Other specified abnormal findings of blood chemistry (ICD-10) Hx of testicular cancer ?Z85.47 - Personal history of malignant neoplasm of testis (ICD-10) <Felipe Blackmon MD - Last Filed: 03/16/23 12:53> Surgical History: Surgical History History of ERCP ?Z98.890 - Other specified postprocedural states (ICD-10) History of orchiectomy, unilateral ?Z90.79 - Acquired absence of other genital organ(s) (ICD-10) History of Whipple procedure ?Z90.410 - Acquired total absence of pancreas (ICD-10) ?Z90.49 - Acquired absence of other specified parts of digestive tract (ICD- 10) History of biliary duct stent placement ?Z98.890 - Other specified postprocedural states (ICD-10) History of insertion of tunneled central venous catheter (CVC) with port ?Z98.890 - Other specified postprocedural states (ICD-10) <Felipe Blackmon MD - Last Filed: 03/16/23 12:53> Social History: Social History Smoking Status: Former smoker What tobacco products do you use: cigarettes Smoking quit date/years: <= 15 years ago Do you use any of these nicotine containing products: None Second hand tobacco smoke exposure: No How often do you have a drink containing alcohol: never How often do you have six or more drinks on one occasion: Never AUDIT-C Alcohol total score: 0 Non-prescribed substance use: marijuana (any form) Non-prescribed substance use details: edibles Caffeine: Yes service: No <Felipe Blackmon MD - Last Filed: 03/16/23 12:53> Exam Narrative Exam Narrative: On examination he is initially seen in the triage room because of the dizziness of the situation in our emergency room, he is speaking to me normally wearing a mask his pupils are equal round reactive to light there is no scleral icterus redness is TMs are normal his oropharynx is normal his neck is supple full range of motion, and there is no lymphadenopathy anterior posterior chains there is a power port in his right chest region. There is no redness noted around it extremities all appear normal, he does have good air entry bilaterally with no wheezing crackles noted easy respirations is heart sounds no clicks murmurs or gallops there is no murmurs. His abdomen is soft scaphoid he is somewhat tender in the upper area there is some hard Mercer feeling to the upper abdominal region. This he tells me this is tumor bowel sounds are otherwise normal, there is no CVA tenderness, moves all extremities independently well, does have a bit of a rash notable on the left and the right side that is nonblanching, non-red <Felipe Blackmon MD - Last Filed: 03/16/23 12:53> Const Vital Signs, click to edit/add: Vital Signs - 24 hr 03/14/23 14:18 03/14/23 18:18 03/14/23 18:20 Temperature 99.1 F Pulse Rate 78 77 Pulse Rate [Pulse Oximeter] 98 Respiratory Rate 16 Blood Pressure 108/67 Blood Pressure [Right Upper Arm] 96/68 Pulse Oximetry 98 99 98 Oxygen Delivery Method Room Air Room Air 03/14/23 18:30 03/14/23 18:45 03/14/23 19:00 Temperature Pulse Rate 77 85 80 Pulse Rate [Pulse Oximeter] Respiratory Rate Blood Pressure Blood Pressure [Right Upper Arm] Pulse Oximetry 99 100 100 Oxygen Delivery Method 03/14/23 19:04 03/14/23 19:15 03/14/23 19:30 Temperature Pulse Rate 85 86 91 Pulse Rate [Pulse Oximeter] Respiratory Rate Blood Pressure Blood Pressure [Right Upper Arm] Pulse Oximetry 98 97 100 Oxygen Delivery Method <Felipe Blackmon MD - Last Filed: 03/16/23 12:53> Vital Signs - 24 hr 03/14/23 14:18 03/14/23 18:18 03/14/23 18:20 Temperature 99.1 F Pulse Rate 78 77 Pulse Rate [Pulse Oximeter] 98 Respiratory Rate 16 Blood Pressure 108/67 Blood Pressure [Right Upper Arm] 96/68 Pulse Oximetry 98 99 98 Oxygen Delivery Method Room Air Room Air 03/14/23 18:30 03/14/23 18:45 03/14/23 19:00 Temperature Pulse Rate 77 85 80 Pulse Rate [Pulse Oximeter] Respiratory Rate Blood Pressure Blood Pressure [Right Upper Arm] Pulse Oximetry 99 100 100 Oxygen Delivery Method 03/14/23 19:04 03/14/23 19:15 03/14/23 19:30 Temperature Pulse Rate 85 86 91 Pulse Rate [Pulse Oximeter] Respiratory Rate Blood Pressure Blood Pressure [Right Upper Arm] Pulse Oximetry 98 97 100 Oxygen Delivery Method <Katelyn Daniel MD - Last Filed: 03/14/23 22:00> Documenting provider has reviewed patient's vital signs: yes <Felipe Blackmon MD - Last Filed: 03/16/23 12:53> Course Course ED Course: I discussed with him and his we will do workup for the fever, I do not see any evidence of significant stigmata, going on here, and if the ANC is g ood, then the oncologist 10 to watch this. His oncologist is . He will need to be signed over to the ER physician, who will be taking over for me. <Felipe Blackmon MD - Last Filed: 03/16/23 12:53> Reevaluation(s) Time of Reevaluation #1: 19:27 <Katelyn Daniel MD - Last Filed: 03/14/23 22:00> Reevaluation #1: Reviewed with Narendra and his significant other the elevation of the white blood count, elevated D-dimer, the increasing liver enzymes. He states his fever spiking again, he took Tylenol that he had himself. We discussed further workup, will proceed with chest CT PE protocol, CT of abdomen and pelvis with IV contrast. It is possible that the elevated labs are coming from his underlying cancer process but do need to rule out pulmonary emboli as well as any possible infectious source that might be treatable. <Katelyn Daniel MD - Last Filed: 03/14/23 22:00> Time of Reevaluation #2: 21:50 <Katelyn Daniel MD - Last Filed: 03/14/23 22:00> Reevaluation #2: Did bring in patient copies of his CT reports. There is no acute infectious etiology seen, no PE. There is increased size and number of the liver metastases. We did discuss the possibility of the elevated white count and fevers coming from the Cancer process, we do have blood cultures pending. At this point we have no known source and fevers have been present for couple weeks now. I think it is reasonable in his situation to allow him to go home and await the blood cultures. He can touch base with his oncology team tomorrow, does need to review the low hemoglobin. They can see how he is doing an re-evaluate to see if they do feel that they would start antibiotics empirically. He notes he is just not sleeping, does describe issues with a fever and waking him up. He is not trying any ibuprofen, just using Tylenol 4 times a day. Did review with them that they could try some ibuprofen, follow bottle directions. He just needs to be mindful that if it starts to bother his stomach, he may need to back off for stop. There is no evidence of any active bleeding anywhere clinically or on his imaging. He does not have any pain management at home, is experiencing some back pain and can feel some abdominal pain from his tumor. He does have some Ativan at home. We discussed need to be careful with use of both benzodiazepines and narcotics together. He believes he has taken some pain management after some surgeries. We are going to have him try some oxycodone here tonight and see if he tolerates it. I will send a prescription for more oxycodone in to use at least at bedtime. Did discuss other medications like fentanyl. Think at this point just getting him some immediate comfort in see if it does help him with sleep would be beneficial. He needs to discuss all these things with his oncology care team, needs to talk to them tomorrow. Did discuss constipation from narcotics, use of MiraLax and senna. <Katelyn Daniel MD - Last Filed: 03/14/23 22:00> Vital Signs Vital signs: Initial Vital Signs Temperature 99.1 F 03/14/23 14:18 Temperature Source Temporal Artery Scan 03/14/23 14:18 Pulse Rate 98 03/14/23 14:18 Pulse Rhythm Regular 03/14/23 14:18 Pulse Strength 3+ Normal 03/14/23 14:18 Respiratory Rate 16 03/14/23 14:18 Blood Pressure 96/68 03/14/23 14:18 Blood Pressure Mean 77 03/14/23 14:18 Blood Pressure Position Sitting 03/14/23 14:18 Pulse Oximetry 98 03/14/23 14:18 Oxygen Delivery Method Room Air 03/14/23 14:18 Vital Signs Temperature 99.1 F 03/14/23 14:18 Pulse Rate 98 03/14/23 14:18 Respiratory Rate 16 03/14/23 14:18 Blood Pressure 96/68 03/14/23 14:18 Pulse Oximetry 98 03/14/23 14:18 Oxygen Delivery Method Room Air 03/14/23 14:18 Temperature 99.1 F 03/14/23 17:35 Pulse Rate 94 03/14/23 22:02 Respiratory Rate 18 03/14/23 17:35 Blood Pressure 109/70 03/14/23 22:01 Pulse Oximetry 95 03/14/23 22:02 Oxygen Delivery Method Room Air 03/14/23 18:18 <Felipe Blackmon MD - Last Filed: 03/16/23 12:53> Initial Vital Signs Temperature 99.1 F 03/14/23 14:18 Temperature Source Temporal Artery Scan 03/14/23 14:18 Pulse Rate 98 03/14/23 14:18 Pulse Rhythm Regular 03/14/23 14:18 Pulse Strength 3+ Normal 03/14/23 14:18 Respiratory Rate 16 03/14/23 14:18 Blood Pressure 96/68 03/14/23 14:18 Blood Pressure Mean 77 03/14/23 14:18 Blood Pressure Position Sitting 03/14/23 14:18 Pulse Oximetry 98 03/14/23 14:18 Oxygen Delivery Method Room Air 03/14/23 14:18 Vital Signs Temperature 99.1 F 03/14/23 14:18 Pulse Rate 98 03/14/23 14:18 Respiratory Rate 16 03/14/23 14:18 Blood Pressure 96/68 03/14/23 14:18 Pulse Oximetry 98 03/14/23 14:18 Oxygen Delivery Method Room Air 03/14/23 14:18 Temperature 99.1 F 03/14/23 17:35 Pulse Rate 94 03/14/23 22:02 Respiratory Rate 18 03/14/23 17:35 Blood Pressure 109/70 03/14/23 22:01 Pulse Oximetry 95 03/14/23 22:02 Oxygen Delivery Method Room Air 03/14/23 18:18 <Katelyn Daniel MD - Last Filed: 03/14/23 22:00> MDM - Fever MDM Narrative Medical decision making narrative: Life-threatening differential diagnosis is include meningitis, encephalitis, pneumonia, intra-abdominal infection, bacteremia, other differential diagnosis include but are not limited to viral upper respiratory tract infection, strep, urinary tract infection, skin infection, osteomyelitis, influenza, fungal infections, diskitis, epidural abscess, or fever of unknown origin. <Felipe Blackmon MD - Last Filed: 03/16/23 12:53> Differential Diagnosis Differential diagnosis: Likely cellulitis, fever of unknown origin, community acquired pneumonia, pyelonephritis, viral infection and sepsis <Felipe Blackmon MD - Last Filed: 03/16/23 12:53> Medical Records Attestation: I reviewed the patient's medical records. <Felipe Blackmon MD - Last Filed: 03/16/23 12:53> Lab Data Attestation: I reviewed the patient's lab results. <Katelyn Daniel MD - Last Filed: 03/14/23 22:00> Labs: Lab Results 03/14/23 03/14/23 Range/Units 17:45 18:00 WBC 35.65 H* (4.50-11.00) K/uL RBC 3.16 L (4.30-5.90) m/uL Hgb 7.8 L* (13.5-17.5) gm/dL Hct 25.2 L (37.0-53.0) % MCV 80 (80-100) fL MCH 25 L (26-34) pg MCHC 31 L (32-36) gm/dL RDW Coeff of Jus 17.2 H (11.5-15.5) % Plt Count 746 H (140-440) K/uL Neut % (Auto) 85.3 H (42.0-72.0) % Lymph % (Auto) 6.0 L (20-44) % [place] % (Auto) 6.0 (0.0-11.0) % Eos % (Auto) 0.2 (0.0-7.0) % Baso % (Auto) 0.1 (0.0-3.0) % Neut # (Auto) 30.40 H (1.7-7.0) K/uL Lymph # (Auto) 2.10 (0.90-2.90) K/uL [place] # (Auto) 2.10 H (0.00-0.90) K/UL Eos # (Auto) 0.10 (0.00-0.50) K/uL Baso # (Auto) 0.00 (0.00-0.30) K/uL Abs Immat Gran (auto) 0.90 H (0.00-0.30) K/uL Imm/Tot Granulo (auto) 2.4 % Diff Slide Review Acceptable Review (Acceptable) D-Dimer Quant (PE/DVT) 4.75 H (0.00-0.50) ug/ml Sodium 126 L (135-149) mmol/L Potassium 4.1 (3.6-5.1) mmol/L Chloride 94 L (96-114) mmol/L Carbon Dioxide 26 (20-32) mmol/L Anion Gap 6 L (7-15) mEq/L BUN 17 (7-30) mg/dL Creatinine 0.9 (0.5-1.5) mg/dL Estimated Creat Clear 94.00 Estimated GFR 103 ml/min Glucose 115 (60-115) mg/dL Lactate 1.1 (0.5-1.9) mmol/L Calcium 11.0 H (8.4-10.6) mg/dL Total Bilirubin 0.4 (0.1-1.5) mg/dL Direct Bilirubin 0.0 (0.0-0.5) mg/dL AST 82 H (12-35) U/L ALT 68 H (4-50) U/L Alkaline Phosphatase 443 H (40-150) U/L C-Reactive Protein 25.1 H (0.5-1.0) mg/dL Total Protein 6.9 (6.0-8.3) g/dL Albumin 3.1 L (3.3-5.0) g/dL Procalcitonin 0.61 H (<0.50) ng/mL Urine Color Yellow (Yellow) Urine Appearance Clear (Clear) Urine pH 5.5 (5.0-8.5) Ur Specific [place] 1.020 (1.000-1.030) Urine Protein Negative (Negative) Urine Glucose (UA) Negative (Negative) Urine Ketones Negative (Negative) Urine Blood Negative (Negative) Urine Nitrite Negative (Negative) Urine Bilirubin Negative (Negative) Urine Urobilinogen 0.2 (0.2-1.0) Ur Leukocyte Esterase Negative (Negative) Urine RBC 0-2 (0-2) Urine WBC 0-2 (0-5) Ur Squamous Epith Cells None (None-Few) Urine Bacteria None (None) SARS-CoV-2 (PCR) Negative SARS-CoV-2 (Negative) Influenza Type A (PCR) Negative PCR FLU A (Negative) Influenza Type B (PCR) Negative PCR FLU B (Negative) RSV (PCR) Negative PCR RSV (Negative) <Felipe Blackmon MD - Last Filed: 03/16/23 12:53> Lab Results 03/14/23 03/14/23 Range/Units 17:45 18:00 WBC 35.65 H* (4.50-11.00) K/uL RBC 3.16 L (4.30-5.90) m/uL Hgb 7.8 L* (13.5-17.5) gm/dL Hct 25.2 L (37.0-53.0) % MCV 80 (80-100) fL MCH 25 L (26-34) pg MCHC 31 L (32-36) gm/dL RDW Coeff of Jus 17.2 H (11.5-15.5) % Plt Count 746 H (140-440) K/uL Neut % (Auto) 85.3 H (42.0-72.0) % Lymph % (Auto) 6.0 L (20-44) % [place] % (Auto) 6.0 (0.0-11.0) % Eos % (Auto) 0.2 (0.0-7.0) % Baso % (Auto) 0.1 (0.0-3.0) % Neut # (Auto) 30.40 H (1.7-7.0) K/uL Lymph # (Auto) 2.10 (0.90-2.90) K/uL [place] # (Auto) 2.10 H (0.00-0.90) K/UL Eos # (Auto) 0.10 (0.00-0.50) K/uL Baso # (Auto) 0.00 (0.00-0.30) K/uL Abs Immat Gran (auto) 0.90 H (0.00-0.30) K/uL Imm/Tot Granulo (auto) 2.4 % Diff Slide Review Acceptable Review (Acceptable) D-Dimer Quant (PE/DVT) 4.75 H (0.00-0.50) ug/ml Sodium 126 L (135-149) mmol/L Potassium 4.1 (3.6-5.1) mmol/L Chloride 94 L (96-114) mmol/L Carbon Dioxide 26 (20-32) mmol/L Anion Gap 6 L (7-15) mEq/L BUN 17 (7-30) mg/dL Creatinine 0.9 (0.5-1.5) mg/dL Estimated Creat Clear 94.00 Estimated GFR 103 ml/min Glucose 115 (60-115) mg/dL Lactate 1.1 (0.5-1.9) mmol/L Calcium 11.0 H (8.4-10.6) mg/dL Total Bilirubin 0.4 (0.1-1.5) mg/dL Direct Bilirubin 0.0 (0.0-0.5) mg/dL AST 82 H (12-35) U/L ALT 68 H (4-50) U/L Alkaline Phosphatase 443 H (40-150) U/L C-Reactive Protein 25.1 H (0.5-1.0) mg/dL Total Protein 6.9 (6.0-8.3) g/dL Albumin 3.1 L (3.3-5.0) g/dL Procalcitonin 0.61 H (<0.50) ng/mL Urine Color Yellow (Yellow) Urine Appearance Clear (Clear) Urine pH 5.5 (5.0-8.5) Ur Specific [place] 1.020 (1.000-1.030) Urine Protein Negative (Negative) Urine Glucose (UA) Negative (Negative) Urine Ketones Negative (Negative) Urine Blood Negative (Negative) Urine Nitrite Negative (Negative) Urine Bilirubin Negative (Negative) Urine Urobilinogen 0.2 (0.2-1.0) Ur Leukocyte Esterase Negative (Negative) Urine RBC 0-2 (0-2) Urine WBC 0-2 (0-5) Ur Squamous Epith Cells None (None-Few) Urine Bacteria None (None) SARS-CoV-2 (PCR) Negative SARS-CoV-2 (Negative) Influenza Type A (PCR) Negative PCR FLU A (Negative) Influenza Type B (PCR) Negative PCR FLU B (Negative) RSV (PCR) Negative PCR RSV (Negative) <Katelyn Daniel MD - Last Filed: 03/14/23 22:00> Imaging Data CT scan - abdomen: Attestation: I have reviewed the pertinent imaging results. <Katelyn Bautista MD - Last Filed: 03/14/23 22:00> Radiologist's impression: Patient: [facility] Facility:?[facility] Patient ID:?[id number] Site Patient ID:?[id number]. Site :?1970 Study:?CT Abdomen/Pelvis 95CC ISOVUE 370-03/14/2023 8:01:42 PM Ordering Physician:Georgina Zepeda Final Report: INDICATION: Fever, pancreatic cancer status post Whipple procedure 95 cc Isovue 370 TECHNIQUE: CT abdomen and pelvis acquired with IV contrast. COMPARISON: February 28, 2023 FINDINGS: Lower chest: Unremarkable. Liver: Multiple conglomerate hypodense masses within the left hepatic lobe is minimally increased measuring 11.8 x 8.7 cm, previously 11.2 x 8.2 cm. New, conglomerate and hypodense masses adjacent to the large left hepatic lobe mass measures 3.1 x 6.5 cm, best seen on image 43 series 2. Interval increase in size and number of masses on image numbers 54 through 63 series 2. 2.0 x 1.1 cm mass at the hepatic dome is stable in size on image 26 series 2. There are a few new lesions within the right hepatic lobe measuring up to 1.5 cm. There is no air within any of the hypodense lesions in the liver. Unchanged metallic density in the periphery of the liver on image 41 series 2. Spleen: Unremarkable. Pancreas: Cystic-like mass in the pancreas measures 2.7 x 2.2 cm, previously 2.3 x 1.1 cm. No pancreatic ductal dilatation. Gallbladder and bile ducts: S/p cholecystectomy. No intrahepatic or extrahepatic biliary ductal dilatation. Adrenal glands: Unremarkable. Kidneys: Unremarkable. GI tract: Postoperative changes of a Whipple procedure. The large left hepatic lobe masses cause mass effect on the stomach. The appendix is not visualized. Vascular structures: Unremarkable. Lymph nodes: Retroperitoneal lymph nodes measure up to 1.7 cm. Miscellaneous: Small amount of simple free fluid in the pelvis. No intra- abdominal abscess identified. Pelvic Organs: Enlarged prostate gland. Bones: Unremarkable for age. No suspicious osseous lesion. IMPRESSION: No acute intra-abdominal inflammatory process identified. Overall increase in size and number of metastatic foci within the liver. Slight interval increase in size cystic like mass in the pancreas. No pancreatic ductal dilatation. Postoperative changes of a Whipple procedure. Enlarged prostate gland. Please note that all CT scans at this facility use dose modulation, iterative reconstruction, and/or weight-based dosing when appropriate to reduce radiation dose to as low as reasonably achievable. Dictated by Nora Molina MD @ 03/14/2023 9:30:21 PM (Electronic Signature) <Katelyn Daniel MD - Last Filed: 03/14/23 22:00> CT scan - chest: Attestation: I have reviewed the pertinent imaging results. <Katelyn Bautista MD - Last Filed: 03/14/23 22:00> Radiologist's impression: Patient: NARENDRA SHIN Facility:?[facility] Patient ID:?[id number] Site Patient ID:?[id number]. Site :?1970 Study:?CT Chest Angio 95CC ISOVUE 370-03/14/2023 8:01:05 PM Ordering Physician:Georgina Zepeda Final Report: INDICATION: Fever, elevated D-dimer, history of pancreatic cancer, status post Whipple procedure TECHNIQUE: CT chest pulmonary PE protocol acquired with 95 cc Isovue 370 IV contrast. COMPARISON: February 28, 2023 FINDINGS: Cardiovascular structures: Normal vascular enhancement of the pulmonary arteries, no sign of pulmonary embolism. Heart size is normal. No sign of aneurysm in the thoracic aorta. Right-sided Port-A-Cath tip terminates at the level of the cavoatrial junction. Mediastinum and song: No mass or adenopathy. Lungs: Clear. Pleura and pericardium: No effusions. Chest wall and axilla: No mass or adenopathy. Upper abdomen: Please see CT abdomen pelvis report from same day for complete description. Bones: No significant findings. IMPRESSION: No pulmonary embolism, pneumonia, or acute intrathoracic abnormality. Please see CT abdomen pelvis report from same day for complete description of the upper abdomen. Please note that all CT scans at this facility use dose modulation, iterative reconstruction, and/or weight-based dosing when appropriate to reduce radiation dose to as low as reasonably achievable. Dictated by Nora Molina MD @ 03/14/2023 9:08:52 PM (Electronic Signature) <Katelyn Daniel MD - Last Filed: 03/14/23 22:00> Chest x-ray: Attestation: I have reviewed the pertinent imaging results. <Katelyn Bautista MD - Last Filed: 03/14/23 22:00> Radiologist's impression: Patient: NARENDRA SHIN Facility:?[facility] Patient ID:?[id number] Site Patient ID:?[id number]. Site :?1970 Study:?XRay Chest 2V-03/14/2023 6:16:08 PM Ordering Physician:Zaida Wang Final Report: INDICATION: Fever. TECHNIQUE: Chest 2 views. COMPARISON: 02/28/2023. FINDINGS: Cardiovascular and mediastinum: Heart size and vasculature are normal in caliber and appearance. Right-sided port catheter tip terminates in the lower SVC. Lungs and pleural spaces: Lungs are clear. No sign of infiltrate or mass. No sign of pleural effusion. No pneumothorax. Bones and soft tissues: No significant findings. IMPRESSION: No acute cardiopulmonary abnormality. Dictated by Riki Pride MD @ 03/14/2023 7:05:57 PM (Electronic Signature) <Katelyn Daniel MD - Last Filed: 03/14/23 22:00> Discharge Plan Discharge Clinical Impression: Fever, Leucocytosis <Felipe Blackmon MD - Last Filed: 03/16/23 12:53> Patient Disposition: Home, Self-Care <Felipe Blackmon MD - Last Filed: 03/16/23 12:53> Condition: Stable <Felipe Blackmon MD - Last Filed: 03/16/23 12:53> Instructions: Fever in Adults (ED) <Felipe Blackmon MD - Last Filed: 03/16/23 12:53> Additional Instructions: Need to touch base with oncology service tomorrow, let them know that your hemoglobin was 7.8 here tonight. We will await blood cultures. Also would like you to talk to Oncology about your sleep issues, pain management and fever management. This time there is no definitive evidence for any source of infection. <Felipe Blackmon MD - Last Filed: 03/16/23 12:53> Activity Level: Activity as Tolerated <Felipe Blackmon MD - Last Filed: 03/16/23 12:53> Activity as Tolerated <Katelyn Daniel MD - Last Filed: 03/14/23 22:00> Prescriptions: New oxycodone 10 mg tablet 10 mg PO Q6H PRN (Reason: pain) Qty: 10 0RF oxycodone 5 mg tablet 5 mg PO Q6H PRN (Reason: pain) Qty: 10 0RF No Action omeprazole 40 mg capsule,delayed release(DR/EC) 40 mg PO QDAY acetaminophen [Tylenol Extra Strength] 500 mg tablet 1,000 mg PO Q6H PRN Patient Comments: taking 3 times daily, scheduled. THC edibles 5 mg PO 1XD PRN sodium chloride 1,000 mg tablet,soluble 1,000 mg PO QDAY PRN (Reason: electrolyte replenishment) Qty: 10 0RF testosterone cypionate [Depo-Testosterone] 100 mg/mL oil 100 mg IM QWEEK ondansetron 4 mg tablet,disintegrating 4 mg PO Q6H PRN (Reason: nausea and vomiting) Qty: 40 1RF Rx Instructions: Take #2 for nausea related to chemotherapy, if not relieved with prochlorperazine (compazine) prochlorperazine maleate [Compazine] 10 mg tablet 10 mg PO TID PRN (Reason: chemotherapy related nausea) Qty: 45 2RF Rx Instructions: Take #1 for nausea related to chemotherapy. lorazepam 0.5 mg tablet 0.5 mg PO BID PRN (Reason: Breakthrough, anticipatory nausea,) Qty: 30 0RF Rx Instructions: Take if compazine or zofran ineffective for nausea and vomiting management. Do not take with other sedating medications. loratadine [Claritin] 10 mg tablet 10 mg PO DAILY valacyclovir [Valtrex] 1 gram tablet 1,000 mg PO DAILY PRN Creon 24,000-76,000 -120,000 unit capsule,delayed release(DR/EC) 1 - 4 cap PO QDAY Qty: 120 1RF Rx Instructions: administer with meals and/or snacks. Max of 4 capsules per day. <Felipe Blackmon MD - Last Filed: 03/16/23 12:53> Follow Up/Referrals: Tico Hugo MD [Primary Care Provider] - <Felipe Blackmon MD - Last Filed: 03/16/23 12:53> Stand Alone Forms: MyHealth Info Instructions <Felipe Blackmon MD - Last Filed: 03/16/23 12:53>
[2023-03-14] MEDS: 0.9 % SODIUM CHLORIDE 1000 ml 1,000 ML IV (17:50)
[2023-03-14 18:04] LABS: Lactate* 1.1 mmol/L (0.5-1.9)
[2023-03-14 18:08] LABS: Basophils Percent Auto 0.1 % (0.0-3.0); Eosinophils Percent Auto 0.2 % (0.0-7.0); Hematocrit 25.2 % (37.0-53.0); Immature Granulocytes Pct Auto 2.4 %; Mean Corpuscular HGB Conc 31 gm/dL (32-36); Mean Corpuscular Hemoglobin 25 pg (26-34); Mean Corpuscular Volume 80 fL (80-100); Neutrophils Percent Auto 85.3 % (42.0-72.0); Platelet Count* 746 K/uL (140-440); RDW Coefficient of Variation % 17.2 % (11.5-15.5); Red Blood Count 3.16 m/uL (4.30-5.90)
[2023-03-14 18:11] LABS: Hemoglobin* 7.8 gm/dL (13.5-17.5); Slide Review Reflex Yes; White Blood Count* 35.65 K/uL (4.50-11.00)
--- NOTE | 2023-03-14 18:12 | PC.NURSE ---
critical WBC 35.65 and critical HGB 7.8
[2023-03-14 18:15] LABS: Appearance Urine Clear (Clear); Bilirubin Urine Negative (Negative); Blood Urine Negative (Negative); Color Urine Yellow (Yellow); Glucose Urine Negative (Negative); Ketones Urine Negative (Negative); Leukocyte Esterase Urine Negative (Negative); Nitrite Urine Negative (Negative); Protein Urine Negative (Negative); Urobilinogen Urine 0.2 (0.2-1.0); pH Urine 5.5 (5.0-8.5)
[2023-03-14 18:20] LABS: Chloride* 94 mmol/L (96-114); Sodium* 126 mmol/L (135-149)
[2023-03-14 18:21] LABS: Albumin* 3.1 g/dL (3.3-5.0); Potassium* 4.1 mmol/L (3.6-5.1)
[2023-03-14 18:24] LABS: Alanine Aminotransferase* 68 U/L (4-50); Alkaline Phosphatase* 443 U/L (40-150); Anion Gap 6 mEq/L (7-15); Aspartate Amino Transferase* 82 U/L (12-35); Bilirubin Total* 0.4 mg/dL (0.1-1.5); Blood Urea Nitrogen* 17 mg/dL (7-30); Carbon Dioxide* 26 mmol/L (20-32); Creatinine* 0.9 mg/dL (0.5-1.5); Estimated Glomerular Filt Rate 103 ml/min; Glucose* 115 mg/dL (60-115); Total Protein* 6.9 g/dL (6.0-8.3)
[2023-03-14 18:32] LABS: D Dimer Quantitative* 4.75 ug/ml (0.00-0.50)
[2023-03-14 18:37] LABS: Slide Review Acceptable Review (Acceptable)
[2023-03-14 18:38] LABS: C Reactive Protein* 25.1 mg/dL (0.5-1.0)
[2023-03-14 18:41] LABS: Procalcitonin* 0.61 ng/mL (<0.50)
[2023-03-14 18:42] LABS: RBC Urine 0-2 (0-2); WBC Urine 0-2 (0-5)
[2023-03-14 18:54] LABS: PCR FLU A Negative PCR FLU A (Negative); PCR FLU B Negative PCR FLU B (Negative); PCR RSV Negative PCR RSV (Negative)
[2023-03-14 19:04] LABS: SARS PCR* Negative SARS-CoV-2 (Negative)
--- NOTE | 2023-03-14 19:26 | CRLHL7_ITS ---
For Patients: As a result of the Century Cures Act, medical imaging exams and procedure reports are released immediately into your electronic medical record. You may view this report before your referring provider. If you have questions, please contact your health care provider. INDICATION: Fever, elevated D-dimer, history of pancreatic cancer, status post Whipple procedure TECHNIQUE: CT chest pulmonary PE protocol acquired with 95 cc Isovue 370 IV contrast. COMPARISON: February 28, 2023 FINDINGS: Cardiovascular structures: Normal vascular enhancement of the pulmonary arteries, no sign of pulmonary embolism. Heart size is normal. No sign of aneurysm in the thoracic aorta. Right-sided Port-A-Cath tip terminates at the level of the cavoatrial junction. Mediastinum and song: No mass or adenopathy. Lungs: Clear. Pleura and pericardium: No effusions. Chest wall and axilla: No mass or adenopathy. Upper abdomen: Please see CT abdomen pelvis report from same day for complete description. Bones: No significant findings. IMPRESSION: No pulmonary embolism, pneumonia, or acute intrathoracic abnormality. Please see CT abdomen pelvis report from same day for complete description of the upper abdomen. Please note that all CT scans at this facility use dose modulation, iterative reconstruction, and/or weight-based dosing when appropriate to reduce radiation dose to as low as reasonably achievable. Dictated by Nora Molina MD @ 03/14/2023 9:08:52 PM (Electronically Signed)
--- NOTE | 2023-03-14 19:26 | CRLHL7_ITS ---
For Patients: As a result of the Century Cures Act, medical imaging exams and procedure reports are released immediately into your electronic medical record. You may view this report before your referring provider. If you have questions, please contact your health care provider. INDICATION: Fever, pancreatic cancer status post Whipple procedure 95 cc Isovue 370 TECHNIQUE: CT abdomen and pelvis acquired with IV contrast. COMPARISON: February 28, 2023 FINDINGS: Lower chest: Unremarkable. Liver: Multiple conglomerate hypodense masses within the left hepatic lobe is minimally increased measuring 11.8 x 8.7 cm, previously 11.2 x 8.2 cm. New, conglomerate and hypodense masses adjacent to the large left hepatic lobe mass measures 3.1 x 6.5 cm, best seen on image 43 series 2. Interval increase in size and number of masses on image numbers 54 through 63 series 2. 2.0 x 1.1 cm mass at the hepatic dome is stable in size on image 26 series 2. There are a few new lesions within the right hepatic lobe measuring up to 1.5 cm. There is no air within any of the hypodense lesions in the liver. Unchanged metallic density in the periphery of the liver on image 41 series 2. Spleen: Unremarkable. Pancreas: Cystic-like mass in the pancreas measures 2.7 x 2.2 cm, previously 2.3 x 1.1 cm. No pancreatic ductal dilatation. Gallbladder and bile ducts: S/p cholecystectomy. No intrahepatic or extrahepatic biliary ductal dilatation. Adrenal glands: Unremarkable. Kidneys: Unremarkable. GI tract: Postoperative changes of a Whipple procedure. The large left hepatic lobe masses cause mass effect on the stomach. The appendix is not visualized. Vascular structures: Unremarkable. Lymph nodes: Retroperitoneal lymph nodes measure up to 1.7 cm. Miscellaneous: Small amount of simple free fluid in the pelvis. No intra-abdominal abscess identified. Pelvic Organs: Enlarged prostate gland. Bones: Unremarkable for age. No suspicious osseous lesion. IMPRESSION: No acute intra-abdominal inflammatory process identified. Overall increase in size and number of metastatic foci within the liver. Slight interval increase in size cystic like mass in the pancreas. No pancreatic ductal dilatation. Postoperative changes of a Whipple procedure. Enlarged prostate gland. Please note that all CT scans at this facility use dose modulation, iterative reconstruction, and/or weight-based dosing when appropriate to reduce radiation dose to as low as reasonably achievable. Dictated by Nora Molina MD @ 03/14/2023 9:30:21 PM (Electronically Signed)
[2023-03-14] MEDS: OXYCODONE 5 MG TABLET PO (22:01)
[2023-03-14] MEDS: ONDANSETRON 2 MG/ML inj 4 MG IVP (22:01)
[2023-03-14] MEDS: HEPARIN 500 UNIT/5 ML SYRINGE IVF (22:03)
== END 2023-03-14 22:23 | disposition home or self-care (01) ==
PROVIDERS: Emergency Provider Family Medicine; PCP Family Medicine
DX: D72.829 Elevated white blood cell count, unspecified (principal); R50.9 Fever, unspecified
CPT/HCPCS: 36415; 71046; 71275; 74177; 80048; 80076; 81001; 83605; 84145; 85025; 85379; 86140; 87040; 87631; 93005; 96361; 96374; 99284; 99285; A9270; J1642; J2405; J7030; Q9967

== ENCOUNTER 2023-03-17 10:01 | Outpatient (RCR) | payer BC, SELFPAY ==
[2022-09-22 13:23] LABS: Basophils Absolute Auto 0.03 K/uL (0.00-0.30); Basophils Percent Auto 0.4 % (0.0-3.0); Eosinophils Absolute Auto 0.12 K/uL (0.00-0.50); Eosinophils Percent Auto 1.5 % (0.0-7.0); Hematocrit 42.9 % (37.0-53.0); Hemoglobin* 14.5 gm/dL (13.5-17.5); Immature Granulocytes Abs Auto 0.01 K/uL (0.00-0.30); Immature Granulocytes Pct Auto 0.1 %; Lymphocytes Absolute Auto 2.08 K/uL (0.90-2.90); Mean Corpuscular HGB Conc 34 gm/dL (32-36); Mean Corpuscular Hemoglobin 30 pg (26-34); Mean Corpuscular Volume 89 fL (80-100); Monocytes Percent Auto 8.4 % (0.0-11.0); Neutrophils Absolute Auto 5.09 K/uL (1.7-7.0); Neutrophils Percent Auto 63.6 % (42.0-72.0); Platelet Count* 307 K/uL (140-440); Red Blood Count 4.83 m/uL (4.30-5.90)
[2022-09-22 13:39] LABS: Slide Review Reflex No
[2022-09-22 13:40] LABS: Albumin* 4.8 g/dL (3.3-5.0); Chloride* 100 mmol/L (96-114); Potassium* 4.4 mmol/L (3.6-5.1); Sodium* 137 mmol/L (135-149)
[2022-09-22 13:42] LABS: Creatinine* 1.1 mg/dL (0.5-1.5); Estimated Glomerular Filt Rate 81 ml/min
[2022-09-22 13:43] LABS: Alanine Aminotransferase* 49 U/L (4-50); Alkaline Phosphatase* 84 U/L (40-150); Aspartate Amino Transferase* 34 U/L (12-35); Bilirubin Total* 0.6 mg/dL (0.1-1.5); Blood Urea Nitrogen* 16 mg/dL (7-30); Carbon Dioxide* 29 mmol/L (20-32); Glucose* 98 mg/dL (60-115); Total Protein* 8.1 g/dL (6.0-8.3)
[2022-09-22 13:44] LABS: Calcium* 8.8 mg/dL (8.4-10.6)
[2022-09-23 22:19] LABS: Cancer Antigen-GI (CA 19-9) 97 U/mL (<=35)
--- NOTE | 2022-09-27 14:27 | ONC.NURNOTE ---
On 06/20 patients CA 19.9 was 26 and on 09/[address] Oseguera reviewed and decided patient needed to have a MRI of pancreas in [place]. Patient called and given information and was somewhat sad but stated this was bound to happen.
--- NOTE | 2022-11-04 11:00 | ONC.NURNOTE ---
Patient calling for Biopsy reports. [phone]
--- NOTE | 2022-11-21 10:07 | URNOTE ---
Request received for authorization for Abraxane (J9264), Gemcitabine HCL (J9201), Granisetron (J1626), Neulasta (J2506). Prior authorization is approved for (Abraxane dose range up to 256.25mg), Gemcitabine HCL, Granisetron) date range 11/24/22 to 06/01/23 with 18 total treatments. Neulasta is NOT APPROVED, see note from Olga Hubbard for plan.
--- NOTE | 2022-11-25 15:51 | ONC.NURNOTE ---
Patient called and plans to get port Monday and have first chemo Monday because he can't get anything done sooner anywhere else.
[2022-11-29 10:07] VITALS: BP 136/81; PULSE 82; RESP 16; TEMP 36.9; O2SAT 99
[2022-11-29 10:24] LABS: Basophils Percent Auto 0.3 % (0.0-3.0); Eosinophils Percent Auto 0.4 % (0.0-7.0); Hematocrit 39.1 % (37.0-53.0); Hemoglobin* 13.1 gm/dL (13.5-17.5); Immature Granulocytes Pct Auto 0.2 %; Lymphocytes Percent Auto 10.5 % (20-44); Mean Corpuscular HGB Conc 34 gm/dL (32-36); Mean Corpuscular Hemoglobin 30 pg (26-34); Mean Corpuscular Volume 89 fL (80-100); Neutrophils Percent Auto 79.6 % (42.0-72.0); Platelet Count* 395 K/uL (140-440); RDW Coefficient of Variation % 12.7 % (11.5-15.5); Red Blood Count 4.38 m/uL (4.30-5.90); White Blood Count* 13.06 K/uL (4.50-11.00)
[2022-11-29 10:25] LABS: Slide Review Reflex No
[2022-11-29 10:37] LABS: Albumin* 4.3 g/dL (3.3-5.0); Chloride* 99 mmol/L (96-114); Sodium* 135 mmol/L (135-149)
[2022-11-29 10:38] LABS: Potassium* 3.8 mmol/L (3.6-5.1)
[2022-11-29 10:40] LABS: Alkaline Phosphatase* 138 U/L (40-150); Aspartate Amino Transferase* 42 U/L (12-35); Bilirubin Total* 0.6 mg/dL (0.1-1.5); Blood Urea Nitrogen* 15 mg/dL (7-30); Carbon Dioxide* 27 mmol/L (20-32); Creatinine* 0.9 mg/dL (0.5-1.5); Estimated Glomerular Filt Rate 103 ml/min; Total Protein* 7.9 g/dL (6.0-8.3)
[2022-11-29 10:41] LABS: Alanine Aminotransferase* 44 U/L (4-50); Calcium* 8.9 mg/dL (8.4-10.6); Glucose* 105 mg/dL (60-115)
[2022-11-29] MEDS: GRANISETRON 1 MG/ML inj IVP (11:35)
[2022-11-29] MEDS: dexAMETHasone 12 MG in 0.9 % SODIUM CHLORIDE 100 ml 100 ML 404.8 MG IVPB (11:39)
[2022-11-29] MEDS: LORazepam 0.5 MG TABLET PO (11:50)
--- NOTE | 2022-11-29 12:07 | ONC.NURNOTE ---
Teaching for New start of chemotherapy Cornell Bailey reviewed possible side effects, self care at home, after hours help, management of a fever- will need to be seen in the ER taking home antiemetics, calling with any side effects or concerns, treatment schedule questions addressed WILMA and consents reviewed and signed new treatment binder reviewed aromatherapy patch given for quesy stomach- patient very concerned about nausea and vomiting
--- NOTE | 2022-11-29 12:23 | ONC.NURNOTE ---
PSDS =5 SS consult sent- discussed with pateint concerns include insurance, eating, work, treatment decisions, fears, worry, nervousness, nausea
[2022-11-29] MEDS: GEMCITABINE 2,000 MG, TUBING SECONDARY 1 EACH in 0.9 % SODIUM CHLORIDE 250 ml 250 ML 605.26 MG IV (13:35)
--- NOTE | 2022-11-30 14:16 | ONC.NURNOTE ---
post chemo follow up call reports no emesis feels functional took lorazepam at HS and this am, using compazine during the day plans to drop the lorazepam in the am no other concerns post chemo
[2022-11-30 15:20] LABS: Cancer Antigen-GI (CA 19-9) 540 U/mL (<=35)
--- NOTE | 2022-12-02 15:21 | ONC.NURNOTE ---
Narendra states feeling better. moved his treatment from 12/06 to 12/13 10am per Olga Willingham APRN. Dale is ok with.
[2022-12-13 10:36] LABS: Basophils Absolute Auto 0.03 K/uL (0.00-0.30); Basophils Percent Auto 0.3 % (0.0-3.0); Eosinophils Absolute Auto 0.09 K/uL (0.00-0.50); Eosinophils Percent Auto 0.8 % (0.0-7.0); Hematocrit 35.5 % (37.0-53.0); Hemoglobin* 11.6 gm/dL (13.5-17.5); Immature Granulocytes Abs Auto 0.04 K/uL (0.00-0.30); Immature Granulocytes Pct Auto 0.4 %; Lymphocytes Percent Auto 14.8 % (20-44); Mean Corpuscular HGB Conc 33 gm/dL (32-36); Mean Corpuscular Hemoglobin 29 pg (26-34); Mean Corpuscular Volume 90 fL (80-100); Monocytes Percent Auto 10.4 % (0.0-11.0); Neutrophils Percent Auto 73.3 % (42.0-72.0); Platelet Count* 501 K/uL (140-440); RDW Coefficient of Variation % 12.8 % (11.5-15.5); Red Blood Count 3.95 m/uL (4.30-5.90); White Blood Count* 10.69 K/uL (4.50-11.00)
[2022-12-13 10:38] LABS: Slide Review Reflex No
[2022-12-13 10:53] LABS: Chloride* 105 mmol/L (96-114)
[2022-12-13 10:54] LABS: Potassium* 4.1 mmol/L (3.6-5.1); Sodium* 140 mmol/L (135-149)
[2022-12-13 10:56] LABS: Bilirubin Total* 0.5 mg/dL (0.1-1.5); Carbon Dioxide* 26 mmol/L (20-32); Creatinine* 0.9 mg/dL (0.5-1.5); Estimated Glomerular Filt Rate 103 ml/min; Total Protein* 7.5 g/dL (6.0-8.3)
[2022-12-13 10:57] LABS: Alanine Aminotransferase* 91 U/L (4-50); Alkaline Phosphatase* 214 U/L (40-150); Aspartate Amino Transferase* 61 U/L (12-35); Blood Urea Nitrogen* 19 mg/dL (7-30); Calcium* 8.9 mg/dL (8.4-10.6); Glucose* 108 mg/dL (60-115)
[2022-12-13] MEDS: LORazepam 0.5 MG TABLET PO (11:33)
[2022-12-13] MEDS: GRANISETRON 1 MG/ML inj IVP (11:33)
[2022-12-13] MEDS: dexAMETHasone 12 MG in 0.9 % SODIUM CHLORIDE 100 ml 100 ML 420 MG IVPB (11:33)
[2022-12-13] MEDS: GEMCITABINE 2,000 MG, TUBING SECONDARY 1 EACH in 0.9 % SODIUM CHLORIDE 250 ml 250 ML 605.26 MG IV (13:09)
[2022-12-15] MEDS: 0.9 % SODIUM CHLORIDE 1000 ml 1,000 ML IV (14:11)
--- NOTE | 2022-12-19 14:38 | ONC.NURNOTE ---
Addendum entered by Nora Lobo RN 12/19/22 15:12: Clinic nurse and Dr. Oseguera discussed this and the following was decided: Patient to get treated every other week, so this would be his week off. He will start C2D1 next week. Patient to continue taking the claritin daily, and use immodium as needed for diarrhea. Dr. Oseguera would like patient to continue with the claritin. Original Note: Patient called office to ask about getting treated tomorrow. Looking at [facility], it appears that day 8 was held and this would be patients week off, but nursing to clarify. New orders will need to be placed. Patient asked about fevers and he noted the following: - [facility] and [facility], took claritin at 1600 -Monday was fever free, and took claritin at 1600. -Monday noted some diarrhea, which he explained as from claritin, so stopped taking. Noted fever around 100.5 at 1100, so took one gram of tylenol. Fever free until 2300, again around 100.5, do took another gram of tylenol. -Monday no medications were taken and fever no higher than 99.7. Patient is feeling well today.
[2022-12-27 10:58] LABS: Basophils Percent Auto 0.3 % (0.0-3.0); Eosinophils Percent Auto 0.4 % (0.0-7.0); Hematocrit 35.2 % (37.0-53.0); Hemoglobin* 11.4 gm/dL (13.5-17.5); Immature Granulocytes Pct Auto 0.2 %; Lymphocytes Percent Auto 10.5 % (20-44); Mean Corpuscular HGB Conc 32 gm/dL (32-36); Mean Corpuscular Hemoglobin 29 pg (26-34); Mean Corpuscular Volume 88 fL (80-100); Monocytes Percent Auto 6.3 % (0.0-11.0); Neutrophils Percent Auto 82.3 % (42.0-72.0); Platelet Count* 333 K/uL (140-440); RDW Coefficient of Variation % 12.9 % (11.5-15.5); Red Blood Count 3.98 m/uL (4.30-5.90); White Blood Count* 13.48 K/uL (4.50-11.00)
[2022-12-27 11:12] LABS: Albumin* 3.9 g/dL (3.3-5.0); Chloride* 102 mmol/L (96-114); Sodium* 137 mmol/L (135-149)
[2022-12-27 11:13] LABS: Potassium* 3.9 mmol/L (3.6-5.1)
[2022-12-27 11:15] LABS: Alkaline Phosphatase* 232 U/L (40-150); Aspartate Amino Transferase* 48 U/L (12-35); Bilirubin Total* 0.5 mg/dL (0.1-1.5); Blood Urea Nitrogen* 13 mg/dL (7-30); Carbon Dioxide* 28 mmol/L (20-32); Creatinine* 0.9 mg/dL (0.5-1.5); Estimated Glomerular Filt Rate 103 ml/min; Glucose* 136 mg/dL (60-115); Total Protein* 7.3 g/dL (6.0-8.3)
[2022-12-27 11:16] LABS: Alanine Aminotransferase* 74 U/L (4-50); Slide Review Reflex No
[2022-12-27 11:41] VITALS: BP 117/78; PULSE 87; RESP 16; TEMP 37.2; O2SAT 100
[2022-12-27] MEDS: GRANISETRON 1 MG/ML inj IVP (12:08)
[2022-12-27] MEDS: dexAMETHasone 12 MG in 0.9 % SODIUM CHLORIDE 100 ml 100 ML 404.8 MG IVPB (12:08)
[2022-12-27] MEDS: LORazepam 0.5 MG TABLET PO (12:25)
[2022-12-27] MEDS: GEMCITABINE 2,000 MG, TUBING SECONDARY 1 EACH in 0.9 % SODIUM CHLORIDE 250 ml 250 ML 605.26 MG IV (13:43)
[2022-12-27] MEDS: HEPARIN 500 UNIT/5 ML SYRINGE IVF (14:20)
[2022-12-27] MEDS: SODIUM CHLORIDE 0.9 % (FLUSH) 10 ML SYRINGE IVF (14:20)
[2023-01-10 09:34] VITALS: BP 126/86; PULSE 82; RESP 16; TEMP 36.9; O2SAT 100
[2023-01-10 10:12] LABS: Chloride* 100 mmol/L (96-114)
[2023-01-10 10:13] LABS: Albumin* 3.9 g/dL (3.3-5.0); Basophils Percent Auto 0.2 % (0.0-3.0); Eosinophils Percent Auto 0.8 % (0.0-7.0); Hematocrit 33.8 % (37.0-53.0); Immature Granulocytes Pct Auto 1.4 %; Mean Corpuscular HGB Conc 33 gm/dL (32-36); Mean Corpuscular Hemoglobin 29 pg (26-34); Mean Corpuscular Volume 88 fL (80-100); Monocytes Percent Auto 7.7 % (0.0-11.0); Neutrophils Percent Auto 79.9 % (42.0-72.0); Platelet Count* 404 K/uL (140-440); Potassium* 4.1 mmol/L (3.6-5.1); RDW Coefficient of Variation % 13.2 % (11.5-15.5); Red Blood Count 3.83 m/uL (4.30-5.90); Sodium* 134 mmol/L (135-149); White Blood Count* 16.97 K/uL (4.50-11.00)
[2023-01-10 10:14] LABS: Slide Review Reflex No
[2023-01-10 10:15] LABS: Anion Gap 6 mEq/L (7-15); Bilirubin Total* 0.4 mg/dL (0.1-1.5); Carbon Dioxide* 28 mmol/L (20-32); Creatinine* 0.9 mg/dL (0.5-1.5); Estimated Glomerular Filt Rate 103 ml/min
[2023-01-10 10:16] LABS: Alanine Aminotransferase* 50 U/L (4-50); Alkaline Phosphatase* 234 U/L (40-150); Aspartate Amino Transferase* 39 U/L (12-35); Blood Urea Nitrogen* 15 mg/dL (7-30); Glucose* 93 mg/dL (60-115); Total Protein* 7.5 g/dL (6.0-8.3)
[2023-01-10] MEDS: dexAMETHasone 12 MG in 0.9 % SODIUM CHLORIDE 100 ml 100 ML 420 MG IVPB (11:23)
[2023-01-10] MEDS: LORazepam 0.5 MG TABLET PO (11:24)
[2023-01-10] MEDS: GRANISETRON 1 MG/ML inj IVP (11:25)
[2023-01-10] MEDS: GEMCITABINE 2,000 MG, TUBING SECONDARY 1 EACH in 0.9 % SODIUM CHLORIDE 250 ml 250 ML 605.26 MG IV (12:37)
[2023-01-11 21:13] LABS: Cancer Antigen-GI (CA 19-9) 1756 U/mL (<=35)
[2023-01-13 15:03] LABS: Calcium* 9.2 mg/dL (8.4-10.6)
[2023-01-24 08:46] VITALS: BP 116/82; PULSE 96; RESP 16; TEMP 37.3; O2SAT 98
[2023-01-24 09:04] LABS: Basophils Percent Auto 0.2 % (0.0-3.0); Eosinophils Percent Auto 0.6 % (0.0-7.0); Hemoglobin* 10.2 gm/dL (13.5-17.5); Immature Granulocytes Pct Auto 0.8 %; Lymphocytes Percent Auto 8.6 % (20-44); Mean Corpuscular HGB Conc 32 gm/dL (32-36); Mean Corpuscular Hemoglobin 28 pg (26-34); Mean Corpuscular Volume 86 fL (80-100); Monocytes Percent Auto 7.9 % (0.0-11.0); Neutrophils Percent Auto 81.9 % (42.0-72.0); Platelet Count* 534 K/uL (140-440); RDW Coefficient of Variation % 13.9 % (11.5-15.5); Red Blood Count 3.71 m/uL (4.30-5.90); White Blood Count* 18.56 K/uL (4.50-11.00)
[2023-01-24 09:06] LABS: Slide Review Reflex No
[2023-01-24 09:16] LABS: Albumin* 3.7 g/dL (3.3-5.0); Chloride* 100 mmol/L (96-114); Sodium* 134 mmol/L (135-149)
[2023-01-24 09:17] LABS: Potassium* 4.2 mmol/L (3.6-5.1)
[2023-01-24 09:19] LABS: Alanine Aminotransferase* 47 U/L (4-50); Alkaline Phosphatase* 245 U/L (40-150); Anion Gap 7 mEq/L (7-15); Aspartate Amino Transferase* 43 U/L (12-35); Bilirubin Total* 0.5 mg/dL (0.1-1.5); Blood Urea Nitrogen* 13 mg/dL (7-30); Carbon Dioxide* 27 mmol/L (20-32); Creatinine* 0.9 mg/dL (0.5-1.5); Estimated Glomerular Filt Rate 103 ml/min; Glucose* 94 mg/dL (60-115); Total Protein* 7.5 g/dL (6.0-8.3)
[2023-01-24 09:20] LABS: Calcium* 9.7 mg/dL (8.4-10.6)
[2023-01-24] MEDS: GRANISETRON 1 MG/ML inj IVP (10:10)
[2023-01-24] MEDS: LORazepam 0.5 MG TABLET PO (10:26)
[2023-01-24] MEDS: dexAMETHasone 12 MG in 0.9 % SODIUM CHLORIDE 100 ml 100 ML 404.8 MG IVPB (10:26)
[2023-01-24] MEDS: SODIUM CHLORIDE 0.9 % (FLUSH) 10 ML SYRINGE IVF ×2 (10:27→12:36)
[2023-01-24] MEDS: GEMCITABINE 2,000 MG, TUBING SECONDARY 1 EACH in 0.9 % SODIUM CHLORIDE 250 ml 250 ML 605.26 MG IV (11:46)
[2023-01-24] MEDS: HEPARIN 500 UNIT/5 ML SYRINGE IVF (12:36)
[2023-01-25 15:21] LABS: Cancer Antigen-GI (CA 19-9) 1958 U/mL (<=35)
--- NOTE | 2023-02-01 14:39 | ONC.NURNOTE ---
Addendum entered by Lillian Quintana RN 02/01/23 14:41: Copy placed in chart Copy made for Narendra Original Note: [employer]- intermediate manager disability form completed for Narendra and faxed to [facility] for [employer] at
[2023-02-07 10:28] LABS: Basophils Percent Auto 0.2 % (0.0-3.0); Eosinophils Percent Auto 0.7 % (0.0-7.0); Hematocrit 28.9 % (37.0-53.0); Hemoglobin* 9.3 gm/dL (13.5-17.5); Immature Granulocytes Pct Auto 1.2 %; Mean Corpuscular HGB Conc 32 gm/dL (32-36); Mean Corpuscular Hemoglobin 27 pg (26-34); Mean Corpuscular Volume 84 fL (80-100); Neutrophils Percent Auto 82.9 % (42.0-72.0); Platelet Count* 588 K/uL (140-440); RDW Coefficient of Variation % 14.6 % (11.5-15.5); Red Blood Count 3.45 m/uL (4.30-5.90); White Blood Count* 21.65 K/uL (4.50-11.00)
[2023-02-07 10:29] LABS: Slide Review Reflex No
[2023-02-07 10:41] LABS: Albumin* 3.6 g/dL (3.3-5.0); Chloride* 100 mmol/L (96-114); Potassium* 4.2 mmol/L (3.6-5.1); Sodium* 133 mmol/L (135-149)
[2023-02-07 10:43] LABS: Creatinine* 0.9 mg/dL (0.5-1.5); Estimated Glomerular Filt Rate 103 ml/min
[2023-02-07 10:44] LABS: Alanine Aminotransferase* 39 U/L (4-50); Alkaline Phosphatase* 246 U/L (40-150); Anion Gap 5 mEq/L (7-15); Aspartate Amino Transferase* 38 U/L (12-35); Bilirubin Total* 0.5 mg/dL (0.1-1.5); Blood Urea Nitrogen* 12 mg/dL (7-30); Calcium* 10.3 mg/dL (8.4-10.6); Carbon Dioxide* 28 mmol/L (20-32); Glucose* 127 mg/dL (60-115); Total Protein* 7.5 g/dL (6.0-8.3)
[2023-02-07 11:07] VITALS: BP 107/71; PULSE 103; RESP 16; TEMP 37.2; O2SAT 99
[2023-02-07] MEDS: dexAMETHasone 12 MG in 0.9 % SODIUM CHLORIDE 100 ml 100 ML 404.8 MG IVPB (11:59)
[2023-02-07] MEDS: GRANISETRON 1 MG/ML inj IVP (11:59)
[2023-02-07] MEDS: LORazepam 0.5 MG TABLET PO (12:14)
[2023-02-07] MEDS: HEPARIN 500 UNIT/5 ML SYRINGE IVF (13:33)
[2023-02-07] MEDS: SODIUM CHLORIDE 0.9 % (FLUSH) 10 ML SYRINGE IVF (13:33)
--- NOTE | 2023-02-07 14:00 | ONC.NURNOTE ---
Pt here for day 15 Abraxane/Gemzar. VSS. Pt states fevers improve while on medrol dose pack, as he begins to taper medrol, fever return. Pt taking Tylenol 1000mg QID and claritin daily. Pt states he has been having fevers up to 102.7. Pt states fevers are getting harder to manage. WBC 21.65 today. Pt denies signs of infection. No urinary symptoms, occasional cough, not daily though. Netting Inspector discussed pt symptoms and labs with Dr. Oseguera. Order received to hold gemzar today and resume Abraxane. Pt verbalized understanding of plan of care.
[2023-02-09 04:58] LABS: Cancer Antigen-GI (CA 19-9) 2197 U/mL (<=35)
[2023-02-21 09:58] VITALS: BP 113/69; PULSE 116; RESP 16; TEMP 36.9; O2SAT 98
[2023-02-21 10:12] LABS: Basophils Percent Auto 0.3 % (0.0-3.0); Eosinophils Percent Auto 0.2 % (0.0-7.0); Hematocrit 31.5 % (37.0-53.0); Hemoglobin* 9.8 gm/dL (13.5-17.5); Immature Granulocytes Pct Auto 4.2 %; Lymphocytes Percent Auto 8.5 % (20-44); Mean Corpuscular HGB Conc 31 gm/dL (32-36); Mean Corpuscular Hemoglobin 26 pg (26-34); Mean Corpuscular Volume 83 fL (80-100); Monocytes Percent Auto 4.7 % (0.0-11.0); Neutrophils Percent Auto 82.1 % (42.0-72.0); Platelet Count* 709 K/uL (140-440); RDW Coefficient of Variation % 15.7 % (11.5-15.5); Red Blood Count 3.82 m/uL (4.30-5.90)
[2023-02-21 10:23] LABS: Albumin* 3.8 g/dL (3.3-5.0); Chloride* 99 mmol/L (96-114); Potassium* 4.3 mmol/L (3.6-5.1); Sodium* 135 mmol/L (135-149)
[2023-02-21 10:25] LABS: Slide Review Reflex Yes; White Blood Count* 27.99 K/uL (4.50-11.00)
[2023-02-21 10:26] LABS: Alanine Aminotransferase* 37 U/L (4-50); Alkaline Phosphatase* 260 U/L (40-150); Anion Gap 10 mEq/L (7-15); Aspartate Amino Transferase* 55 U/L (12-35); Bilirubin Total* 0.3 mg/dL (0.1-1.5); Blood Urea Nitrogen* 19 mg/dL (7-30); Calcium* 10.7 mg/dL (8.4-10.6); Carbon Dioxide* 26 mmol/L (20-32); Estimated Glomerular Filt Rate 91 ml/min; Glucose* 153 mg/dL (60-115); Total Protein* 7.8 g/dL (6.0-8.3)
[2023-02-21 10:41] LABS: Slide Review Acceptable Review (Acceptable)
--- NOTE | 2023-02-21 11:02 | CRLHL7_ITS ---
For Patients: As a result of the Century Cures Act, medical imaging exams and procedure reports are released immediately into your electronic medical record. You may view this report before your referring provider. If you have questions, please contact your health care provider. INDICATION: FEVER TECHNIQUE: Chest 2 views COMPARISON: 12.01.22 FINDINGS: Cardiovascular and mediastinum: Heart size and vasculature are normal in caliber and appearance. Lungs and pleural spaces: Lungs are clear. No sign of infiltrate or mass. No sign of pleural effusion. No pneumothorax. Bones and soft tissues: Right-sided Port-A-Cath. IMPRESSION: No acute findings. Dictated by Viktor Ash MD @ 02/21/2023 11:53:25 AM (Electronically Signed)
[2023-02-21 11:27] LABS: Appearance Urine Clear (Clear); Bilirubin Urine Negative (Negative); Blood Urine Negative (Negative); Color Urine Yellow (Yellow); Glucose Urine Negative (Negative); Ketones Urine Negative (Negative); Leukocyte Esterase Urine Negative (Negative); Nitrite Urine Negative (Negative); Protein Urine Trace (Negative); Specific Gravity Urine 1.025 (1.000-1.030); Urobilinogen Urine 0.2 (0.2-1.0)
[2023-02-21 11:41] LABS: RBC Urine 0-2 (0-2); Squamous Epithelial Cell Urine Few (None-Few); WBC Urine 0-2 (0-5)
[2023-02-21 11:42] LABS: Amorphous Sediment Urine Few; Calcium Oxalate Crystals Urine Few
--- NOTE | 2023-02-21 12:54 | PC.NURSE ---
Addendum entered by Luisa Thibodeaux RN 02/22/23 15:49: Per Dr. Oseguera, CXR and UA reviewed, Okay to treat if blood culture still pending as long as he feels at his baseline. Agricultural Technician called pt with this information. Pt scheduled for 02/24/23. Original Note: Pt present at [facility] today for labs and chemo treatment. RN noted that Gemzar was held last week due to problematic fevers. RN did full assessment and Narendra shares that even without Gemzar with his last treatment, he still had 3-4 episodes of fever >102 and many other instances of lower grade fevers. Instead of taking a Medrol Dose Pack up front, Narendra used the steroid sporadically through the last few weeks. He also continues to use Tylenol PRN. Pt has c/o constipation, states he has BM every day or every other day and the volume seems less. He also shares that he wakes in the middle of the night to stool and has to talk himself into it as opposed to feeling the urge. Narendra shares that he had one episode of abdominal pain on Monday evening into Monday. He feels like it's more gas pain and at times was sharp but resolved with hydrating with water. Narendra reports a slight cough which is dry, rare, and intermittent. Urinary frequency seems to be new for him and Narendra reports that he goes more often with less volume. Discussed all of the above with Dr. Oseguera. asked that we hold chemo today and go forward with a fever work up with CXR, blood cultures per port (1 set), and UA/UC. These orders were entered. Will proceed with treatment when results back and at least a preliminary result on the blood culture. Also of note, pt shared that he had been looking into a clinical trial, however, the particular trial he was investigating is now closed. Will call pt to schedule resumption of chemo once results (prelim on blood cx) are back.
[2023-02-24] MEDS: GRANISETRON 1 MG/ML inj IVP (11:34)
[2023-02-24] MEDS: LORazepam 0.5 MG TABLET PO (11:34)
[2023-02-24] MEDS: dexAMETHasone 12 MG in 0.9 % SODIUM CHLORIDE 100 ml 100 ML 420 MG IVPB (11:34)
[2023-02-24] MEDS: GEMCITABINE 2,000 MG, TUBING SECONDARY 1 EACH in 0.9 % SODIUM CHLORIDE 250 ml 250 ML 605.26 MG IV (12:44)
--- NOTE | 2023-03-14 11:56 | ONC.NURNOTE ---
Called and spoke with patient regarding follow up-If he picked hospice-Did he want follow up appointment made for him in March and How is he feeling. Patient answered phone stating he feels awful and has been having fevers. Asked if he has seen MD about these to be sure it's nothing that can be treated and he stated no so recommended he go to ER and get evaluated. Has been off Gemzar so it's not that but could just be tumor fever as well. He does plan on going to [employer] in [place] soon for study so he is hoping to feel better. Will follow up with patient in a few days
[2023-03-15] MEDS: SODIUM CHLORIDE 0.9 % (FLUSH) 10 ML SYRINGE IVF (11:55)
[2023-03-15] MEDS: 0.9 % SODIUM CHLORIDE 1000 ml 1,000 ML IV (11:55)
[2023-03-15 13:58] VITALS: BP 86/52; PULSE 77; RESP 18; TEMP 37.6; O2SAT 98
--- NOTE | 2023-03-15 14:07 | ONC.NURNOTE ---
Pt here for 1 unit PRBC, following 1 L NS IV and an appt with Dr. Oseguera. Pt monitors his temp with his own thermometer; 99.4 oral, 99.6 with our temporal artery thermometer prior to initiating blood transfusion. Pt has not had a blood transfusion prior; consent signed. At baseline pt has back pain and a cyclical daily fever that begins mid afternoon and peaks early evening ~101-102. He takes Tylenol QID; he took a dose this morning, then repeated just prior to blood transfusion. He notes this fever pattern is consistent even with Tylenol; he uses ice packs to lower his fever when around 101. BP immediately prior to transfusion is 80's/50's, following 1L NS.
[2023-03-15 14:17] VITALS: BP 81/49; PULSE 74; RESP 18; TEMP 37.4; O2SAT 99
[2023-03-15 16:14] VITALS: BP 90/54; PULSE 77; RESP 18; TEMP 37.3; O2SAT 98
--- NOTE | 2023-03-16 14:03 | ONC.NURNOTE ---
Received call from patient's friend Raven asking ghost writer to check in with patient because he is having terrible back pain and she feels he needs more pain medicine. Business Account Leader called and spoke with patient and he states he only took one Oxycodone tablet which helped him sleep but then he woke up with terrible pain exactly 6 hours later and he feels like he will set his alarm tonight and take one then. We also discussed Fentanyl and will talk more about that 03/17
[2023-03-17] VITALS (7 sets, daily range): BP systolic 101–132; BP diastolic 65–76; PULSE 70–106; RESP 16–20; TEMP 36.6–37.4; O2SAT 96–99
--- NOTE | 2023-03-20 15:41 | ONC.NURNOTE ---
Raven called stating Narendra appeared to be in pain, josephine when coughing. After talking about pain control discovered his fentanyl patch was falling off and he is only using oxycontin at night. Instructed her to remove old patch and apply a new on on pts back by his shoulder, Not over hair. also discussed using oxycodone for breakthrought pain and not just at night. States he is not febrile. enc call back if needed.
--- NOTE | 2023-03-21 13:44 | ONC.NURNOTE ---
Received call from brother Jacob asking if patient wanted to stay in [place], could hospice be set up at his apartment in [place]. Wire Wrapping Machine Operator let him know yes this could be done but would take a few days to get referral processed [facility] and also Narendra had expressed to music writer he wanted to be up by his mother. Would like to hear from Narendra this is what HE wants.
== END 2023-03-21 23:59 | disposition home or self-care (01) ==
LOC: CCIC 10:01
PROVIDERS: Internal Medicine Hematology & Oncology; Physician Assistant; PCP Family Medicine; Referring Provider Family Medicine; Visit Provider Clinical Nurse Specialist
DX: C25.9 Malignant neoplasm of pancreas, unspecified (principal)
CPT/HCPCS: 36415; 36430; 36591; 71046; 80053; 81003; 81015; 85025; 86301; 86850; 86900; 86901; 86922; 87040; 96360; 96376; 96413; 96417; 99211; 99212; 99213; 99214; 99215; A9270; J1100; J1626; J1642; J7030; J7050; J9201; J9264; P9016